=== PATIENT | male | born 1935 | race Hispanic/Latino ===

== ENCOUNTER 2016-09-04 22:54 | Observation (INO) | payer MEDICARE ==
[2016-09-04 23:09] VITALS: RESP 20
[2016-09-04 23:46] LABS: RBC URINE 27 /hpf (0-3); URINE BACTERIA MOD (<OCC); URINE BILIRUBIN NEGATIVE (NEGATIVE); URINE BLOOD 2+ (NEGATIVE); URINE GLUCOSE (UA) 1+ mg/dL (Normal); URINE KETONE TRACE mg/dL (NEGATIVE); URINE LEUKOCYTE ESTERASE 2+ Leu/uL (Negative); URINE PROTEIN 2+ mg/dL (NEGATIVE); URINE UROBILINOGEN NORMAL mg/dL (0.2-1.0); WBC URINE 318 /hpf (0-5)
[2016-09-04 23:47] LABS: URINE COLOR YELLOW (YELLOW)
[2016-09-05] MEDS ORDERED: Sodium Chloride 0.9% 1,000 ML IV ONE (00:02)
[2016-09-05] MEDS ORDERED: Sodium Chloride 0.9% 1,000 ML ONE (00:21)
[2016-09-05 00:32] LABS: BASO # 0.1 K/uL (0.0-0.2); EOS # 0.1 K/uL (0.0-0.7); EOS % 0.7 % (0.0-4.0); HEMATOCRIT 32.9 % (35.0-51.0); LYMPH # 2.3 K/uL (1.0-4.3); LYMPH % 15.2 % (20.0-40.0); MEAN CORPUSCULAR HEMOGLOBIN 26.5 pg (27.0-31.0); MEAN CORPUSCULAR HGB CONC 32.3 g/dL (33.0-37.0); MEAN PLATELET VOLUME 9.4 fL (7.2-11.7); MONO # 1.7 K/uL (0.0-0.8); NRBC % 0.1 % (0.0-2.0); RED CELL DISTRIBUTION WIDTH 16.5 % (11.5-14.5); WHITE BLOOD COUNT 15.4 K/uL (4.8-10.8)
[2016-09-05 00:48] LABS: CHLORIDE 97 mmol/L (98-107); POTASSIUM 3.8 mmol/L (3.6-5.2); SODIUM 139 mmol/L (132-148)
[2016-09-05 00:50] LABS: GFR AFRICAN-AMERICAN > 60
[2016-09-05 00:51] LABS: ALB/GLOB RATIO 1.2 (1.0-2.1); ALKALINE PHOSPHATASE 92 U/L (38-126); ALT/SGPT 14 U/L (21-72); AST/SGOT 29 U/L (17-59); BILIRUBIN,TOTAL 0.6 mg/dL (0.2-1.3); BLOOD UREA NITROGEN 21 mg/dL (9-20); CARBON DIOXIDE 26 mmol/L (22-30); GLUCOSE,RANDOM 222 mg/dL (75-110); TOTAL PROTEIN 7.5 g/dL (6.3-8.3)
[2016-09-05 00:52] LABS: CALCIUM 9.6 mg/dl (8.6-10.4)
--- NOTE | 2016-09-05 01:07 | C.PDOC ---
Time Seen by Provider: 09/04/16 23:31 Chief Complaint (Nursing): Male Genitourinary History Per: Patient Onset/Duration Of Symptoms: Days (few) Current Symptoms Are (Timing): Still Present Severity: Moderate Quality Of Discomfort: Burning Associated Symptoms: Fever, Urinary Symptoms Alleviating Factors: None Additional History Per: Prior Records Past Medical History Reviewed: Historical Data, Nursing Documentation, Vital Signs Vital Signs: Last Vital Signs Temp 97.8 F 09/04/16 23:04 Pulse 90 09/04/16 23:04 Resp 20 09/04/16 23:04 BP 136/79 09/04/16 23:04 Pulse Ox 97 09/05/16 01:07 - Medical History PMH: Benign Prostatic Hyperplasia, Diabetes, HTN Surgical History: Coronary Stent (10 years ago) - [employer] Procedures CORONAR ARTERIOGR-2 CATH (04/02/07) LEFT HEART CARDIAC CATH (04/02/07) LT HEART ANGIOCARDIOGRAM (04/02/07) Family History: States: Unknown Family Hx - Social History Hx Alcohol Use: No Hx Substance Use: No Review Of Systems Except As Marked, All Systems Reviewed And Found Negative. Constitutional: Positive for: Fever. Negative for: Weakness Cardiovascular: Negative for: Chest Pain Respiratory: Negative for: Shortness of Breath Gastrointestinal: Negative for: Vomiting, Abdominal Pain, Diarrhea Genitourinary: Positive for: Dysuria, Frequency. Negative for: Scrotal Pain Musculoskeletal: Negative for: Neck Pain, Back Pain Skin: Negative for: Rash Neurological: Negative for: Weakness, Numbness, Seizures, Altered Mental Status Physical Exam - Physical Exam Appears: Non-toxic, No Acute Distress Skin: Normal Color, Warm, Dry, No Rash Head: Atraumatic, Normacephalic Eye(s): bilateral: PERRL, EOMI Neck: Normal ROM, Supple Cardiovascular: Rhythm Regular Respiratory: Normal Breath Sounds, No Accessory Muscle Use Gastrointestinal/Abdominal: Soft, No Tenderness Back: No CVA Tenderness Extremity: Normal ROM Neurological/Psych: Oriented x3, Normal Motor, Normal Sensation ED Course And Treatment - Laboratory Results Result Diagrams: 09/05/16 00:23 09/05/16 00:23 Lab Interpretation: Abnormal Interpretation Of Abnormal: UTI. Leukocytosis. O2 Sat by Pulse Oximetry: 97 Pulse Ox Interpretation: Normal Disposition Discussed With : Hany P Keswani Comment: He accepted pt on hospitalist service. Doctor Will See Patient In The: Hospital Counseled Patient/Family Regarding: Studies Performed, Diagnosis - Disposition Disposition: HOSPITALIZED Disposition Time: 01:13 Condition: FAIR - Clinical Impression Clinical Impression: Complicated urinary tract infection
[2016-09-05] MEDS ORDERED: cefTRIAXone IV 1 gm in Dextros 50 ML IVPB ONE ×2 (01:16→02:06)
--- NOTE | 2016-09-05 02:10 | CP.PCM.HP ---
Addendum entered and electronically signed by Vicente Jeff DO 09/05/16 08:23: Correction: new home medication (for 3 weeks) is Trulicity 0.75mg q7D. Patient has taken a total of 2 doses. Original Note: <Vicente Jeff - Last Filed: 09/05/16 04:57> History of Present Illness - History of Present Illness History of Present Illness: CC: urinary frequency/burning x 1 week HPI: 81 M with PMHx BPH, Diabetes II, HTN, CAD - presents c/o sudden onset urinary frequency and burning with urination for the past week. More specifically, over the last 4 days, he admits to urinating every 10 minutes, when he typically urinates every few hours. Patient also c/o intermittent fever for the past 3 days, responsive to Tylenol (Tmax 102F). Patient does not recall any major changes to his diet or routine, with the exception of starting a new diabetes medication 3 weeks ago - weekly Trulicity in place of his daily Victoza. Patient reports completing 2 Sunday doses of Trulicity, a skipped his 3rd dose on 09/04 after feeling that he was experiencing side-effects (based on reading the SE label). He could not reach his PMD, but reached the pharmacy instead, who advised him to come to the ED. Admits to fever, lethargy, dysuria, decreased urinary volume, and urinary frequency. Denies scrotal pain. Also denies chills, headache, weakness, chest pain, palpitations, SOB, abdominal pain , back pain, rash, or any additional acute complaints. PMHx: BPH, Diabetes II, HTN, CAD PSHx: Coronary Stent (10 years ago) Meds: Verified via [facility] [phone]. Tamsulosin/Deuteride 0.4mg/ 0.5mg PO qD; Truvia 0.75mg q7D; Levemir 40u HS; glyburide 2.5mg BID; metformin 1000mg BID; Amlodipine 10mg / HCTZ 25mg / Valsartan 320mg PO qD. Allergies: NKDA FamHx: unknown SocHx: Denies tobacco, ETOH, or illicit drug use. Lives in an apartment, alone. 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 PMD: Dr. Adrian Burnett Present on Admission - Present on Admission Any Indicators Present on Admission: No Review of Systems - Constitutional Constitutional: Fever. absent: Chills, Headache - EENT Eyes: absent: Blurred Vision, Change in Vision Ears: absent: Decreased Hearing, Ear Discharge, Ear Pain Nose/Mouth/Throat: absent: Nasal Congestion, Nasal Discharge - Cardiovascular Cardiovascular: absent: Chest Pain, Chest Pain at Rest, Dyspnea - Respiratory Respiratory: absent: Cough, Dyspnea - Gastrointestinal Gastrointestinal: absent: Belching, Bloating, Diarrhea, Dysphagia - Genitourinary Genitourinary: As Per HPI, Voiding Freq/Small Amts. absent: Hematuria, Pyuria, Nocturia, Freq UTI - Reproductive: Male Reproductive:Male: As Per HPI - Musculoskeletal Musculoskeletal: absent: Muscle Weakness, Numbness, Tingling - Neurological Neurological: absent: Abnormal Hearing, Abnormal Movements - Psychiatric Psychiatric: absent: Anxiety, Depression - Hematologic/Lymphatic Hematologic: absent: Easy Bleeding, Easy Bruising Past Patient History - Past Social History Smoking Status: Never Smoked - CARDIAC Hx Hypertension: Yes - ENDOCRINE/METABOLIC Hx Diabetes Mellitus Type 1: Yes - GENITOURINARY/GYNECOLOGICAL Hx Prostate Problems: Yes - PSYCHIATRIC Hx Substance Use: No - SURGICAL HISTORY Hx Coronary Stent: Yes (10 years ago) Meds Allergies/Adverse Reactions: Allergies Allergy/AdvReac Type Severity Reaction Status Date / Time No Known Allergies Allergy Verified 09/10/16 20:12 Physical Exam - Constitutional Appears: Non-toxic, No Acute Distress - Head Exam Head Exam: ATRAUMATIC, NORMAL INSPECTION - Eye Exam Eye Exam: EOMI, Normal appearance, PERRL - ENT Exam ENT Exam: Mucous Membranes Moist - Neck Exam Neck exam: Positive for: Normal Inspection - Respiratory Exam Respiratory Exam: Clear to Auscultation Bilateral, NORMAL BREATHING PATTERN. absent: Wheezes - Cardiovascular Exam Cardiovascular Exam: REGULAR RHYTHM, +S1, +S2. absent: Rubs - GI/Abdominal Exam GI & Abdominal Exam: Normal Bowel Sounds, Soft. absent: Tenderness Additional comments: - No suprapubic tenderness - Exam Exam: absent: Scrotal Swelling, Testicular Tenderness - Extremities Exam Extremities exam: Positive for: normal inspection. Negative for: pedal edema, tenderness - Back Exam Back exam: NORMAL INSPECTION. absent: CVA tenderness (L), CVA tenderness (R) - Neurological Exam Neurological exam: Alert, CN II-XII Intact, Normal Gait, Oriented x3, Reflexes Normal - Psychiatric Exam Psychiatric exam: Normal Affect, Normal Mood - Skin Skin Exam: Dry, Intact, Normal Color, Warm Results - Vital Signs Recent Vital Signs: Last Vital Signs Temp 97.8 F 09/04/16 23:04 Pulse 90 09/04/16 23:04 Resp 20 09/04/16 23:04 BP 136/79 09/04/16 23:04 Pulse Ox 97 09/05/16 01:16 - Labs Result Diagrams: 09/05/16 00:23 09/05/16 00:23 Labs: Laboratory Results - last 24 hr 09/04/16 09/05/16 09/05/16 23:39 00:23 00:23 WBC 15.4 H RBC 4.01 L Hgb 10.6 L Hct 32.9 L MCV 82.0 MCH 26.5 L MCHC 32.3 L RDW 16.5 H Plt Count 330 MPV 9.4 Neut % (Auto) 72.1 Lymph % (Auto) 15.2 L [place] % (Auto) 11.0 H Eos % (Auto) 0.7 Baso % (Auto) 1.0 Neut # 11.1 H Lymph # 2.3 [place] # 1.7 H Eos # 0.1 Baso # 0.1 Sodium 139 Potassium 3.8 Chloride 97 L Carbon Dioxide 26 Anion Gap 20 BUN 21 H Creatinine 1.1 Est GFR ( Amer) > 60 Est GFR (Non-Af Amer) > 60 POC Glucose (mg/dL) Random Glucose 222 H Calcium 9.6 Total Bilirubin 0.6 AST 29 ALT 14 L Alkaline Phosphatase 92 Total Protein 7.5 Albumin 4.1 Globulin 3.4 Albumin/Globulin Ratio 1.2 Urine Color Yellow Urine Clarity Hazy Urine pH 5.0 Ur Specific [place] 1.027 Urine Protein 2+ H Urine Glucose (UA) 1+ H Urine Ketones Trace Urine Blood 2+ H Urine Nitrate Negative Urine Bilirubin Negative Urine Urobilinogen Normal Ur Leukocyte Esterase 2+ H Urine WBC (Auto) 318 H Urine RBC (Auto) 27 H Ur Squamous Epith Cells 2 Urine Bacteria Mod H 09/05/16 00:23 WBC RBC Hgb Hct MCV MCH MCHC RDW Plt Count MPV Neut % (Auto) Lymph % (Auto) [place] % (Auto) Eos % (Auto) Baso % (Auto) Neut # Lymph # [place] # Eos # Baso # Sodium Potassium Chloride Carbon Dioxide Anion Gap BUN Creatinine Est GFR ( Amer) Est GFR (Non-Af Amer) POC Glucose (mg/dL) 231 H Random Glucose Calcium Total Bilirubin AST ALT Alkaline Phosphatase Total Protein Albumin Globulin Albumin/Globulin Ratio Urine Color Urine Clarity Urine pH Ur Specific [place] Urine Protein Urine Glucose (UA) Urine Ketones Urine Blood Urine Nitrate Urine Bilirubin Urine Urobilinogen Ur Leukocyte Esterase Urine WBC (Auto) Urine RBC (Auto) Ur Squamous Epith Cells Urine Bacteria Assessment & Plan - Assessment and Plan (Free Text) Assessment: Complicated urinary tract infection - UA 2+ protein, 1+ glucose, 2+blood, 2+leuk est, 318 WBC, 27 RBC bacteria level moderate. - f/u UC - f/u BC - received Rocephin 1Gm IV in ED - Continue Rocephin 1Gm IVPB qd - f/u Abd/Pelv CT w/o contrast to investigate RBC in urine. - urinary frequency -> Post void residual volume 25cc via bladder scan. Leukocytosis - WBC 15.4 - afrebrile in ED. - pt reports fever of 102F for 3 days prior to admission. - see management above for UTI. Anemia, acute -Asymptomatic -Hgb 10.6; Hct 32.9, MCV 82 - f/u Fe, TIBC, %sat, ferritin, B12, folate Diabetes Type2 - Start Novolog ISS - medium dose - Verify home meds with PMD - HOLD Truvia 0.75mg q7D (recently started, replaced Victoza 1.8mg qD) - HOLD Levemir 40u HS - HOLD glyburide 2.5mg BID - HOLD metformin 1000mg BID - f/u A1c Hypertension - 136/79 on admission - HOLD home Amlodipine 10mg / HCTZ 25mg / Valsartan 320mg qD (verify with PMD). Hx BPH - Tamsulosin 0.4mg - Deuteride 0.5mg PO qD (not on formulary -> Finasteride 5mg PO qD) Hx CAD - Patient is not currently medicated - f/u FLP Prophylaxis -SCDs -Pepcid 20mg PO qD - Date & Time Date: 09/05/16 Time: 02:07 <Hany Aggarwal - Last Filed: 09/11/16 21:51> Results - Vital Signs Recent Vital Signs: Last Vital Signs Temp 98 F 09/05/16 15:29 Pulse 85 09/05/16 15:29 Resp 20 09/05/16 15:29 BP 155/72 H 09/05/16 15:29 Pulse Ox 95 09/05/16 15:29 - Labs Result Diagrams: 09/05/16 08:04 09/05/16 08:04 Attending/Attestation - Attestation I have personally seen and examined this patient.: Yes I have fully participated in the care of the patient.: Yes I have reviewed all pertinent clinical information: Yes
[2016-09-05] MEDS: (Novolog) Insulin Aspart, Recombinant 100 u/ml 10 ml vial SC SCH ×3 (07:47→18:56)
[2016-09-05 08:18] LABS: BASO # 0.1 K/uL (0.0-0.2); BASO % 0.9 % (0.0-2.0); EOS # 0.2 K/uL (0.0-0.7); EOS % 1.2 % (0.0-4.0); HEMATOCRIT 33.3 % (35.0-51.0); LYMPH # 2.7 K/uL (1.0-4.3); MEAN CELL VOLUME 82.5 fL (80.0-94.0); MEAN CORPUSCULAR HEMOGLOBIN 27.4 pg (27.0-31.0); MEAN CORPUSCULAR HGB CONC 33.2 g/dL (33.0-37.0); MONO # 1.5 K/uL (0.0-0.8); MONO % 10.3 % (0.0-10.0); NRBC % 0.1 % (0.0-2.0); RED CELL DISTRIBUTION WIDTH 16.1 % (11.5-14.5); WHITE BLOOD COUNT 14.4 K/uL (4.8-10.8)
[2016-09-05 08:37] LABS: IRON 36 ug/dL (49-181)
[2016-09-05 08:48] LABS: CHLORIDE 99 mmol/L (98-107); SODIUM 140 mmol/L (132-148)
[2016-09-05 08:50] LABS: CHOLESTEROL 118 mg/dL (0-199); GFR AFRICAN-AMERICAN > 60
[2016-09-05 08:51] LABS: ALB/GLOB RATIO 1.2 (1.0-2.1); ALKALINE PHOSPHATASE 95 U/L (38-126); ALT/SGPT 28 U/L (21-72); AST/SGOT 33 U/L (17-59); BILIRUBIN,TOTAL 0.8 mg/dL (0.2-1.3); BLOOD UREA NITROGEN 18 mg/dL (9-20); CALCIUM 9.7 mg/dl (8.6-10.4); CARBON DIOXIDE 27 mmol/L (22-30); GLUCOSE,RANDOM 127 mg/dL (75-110); PHOSPHOROUS 3.2 mg/dL (2.5-4.5)
[2016-09-05 08:52] LABS: MAGNESIUM 2.2 mg/dL (1.6-2.3)
[2016-09-05 09:59] LABS: FOLATE > 20.0 ng/mL
--- NOTE | 2016-09-05 10:42 | CT ---
PROCEDURE: CT Abdomen and Pelvis without Oral or IV contrast. HISTORY: urinary frequency, 27 RBC in urine COMPARISON: None available. TECHNIQUE: Contiguous axial images of the abdomen and pelvis. No oral or IV contrast administered. Coronal and Sagittal reformats generated and reviewed. Radiation dose: Total exam DLP = 1081.26 mGy-cm. This CT exam was performed using one or more of the following dose reduction techniques: Automated exposure control, adjustment of the mA and/or kV according to patient size, and/or use of iterative reconstruction technique. FINDINGS: There is limited evaluation of the solid organs without the administration of IV contrast. LOWER THORAX: No visible consolidation, pleural effusion, or pneumothorax. Partially imaged borderline cardiomegaly. LIVER: Punctate hepatic calcification, likely granuloma. GALLBLADDER AND BILE DUCTS: Unremarkable unenhanced appearance. PANCREAS: Unremarkable unenhanced appearance. SPLEEN: Unremarkable unenhanced appearance. ADRENALS: Unremarkable unenhanced appearance. KIDNEYS AND URETERS: No hydronephrosis or obstructing renal calculus. Punctate nonobstructing right renal calculus. 6 mm hypodense exophytic right renal lesion, too small to characterize. BLADDER: Under distention of the urinary bladder precludes adequate evaluation. Bladder wall appears thickened, likely exaggerated by under distension. REPRODUCTIVE: Heterogeneous enlarged prostate gland measures approximately 5.2 x 5.9 cm. APPENDIX: The appendix appears within normal limits of caliber. No secondary signs of acute appendicitis. BOWEL: The stomach is nondistended. Lack of oral contrast limits evaluation for bowel pathology. The bowel loops appear within normal limits of caliber without evidence of intestinal obstruction. Moderate constipation. PERITONEUM: No significant free fluid. No definite free air. LYMPH NODES: No bulky lymphadenopathy identified. VASCULATURE: Atherosclerotic calcifications. No aortic aneurysm. BONES: Peripherally sclerotic 1.5 cm lucent lesion in the right pelvis (coronal image 93). 6 mm sclerotic focus within the right sacrum, possibly bone island. Osseous demineralization. Multilevel degenerative changes. Mild curvature of the lumbar spine convex to the right. OTHER FINDINGS: Left greater than right fat containing inguinal hernias. IMPRESSION: Enlarged heterogeneous prostate gland. Recommend correlation with PSA. Moderate constipation. Too small to characterize 6 mm right renal lesion. 1.5 cm right pelvic lesion described above, possibly enchondroma. Additional findings as above.
[2016-09-05 10:50] LABS: PROSTATE SPECIFIC ANTIGEN 3.25 ng/mL (0.00-4.0)
[2016-09-05 15:34] VITALS: BP 155/72; PULSE 85; TEMP 98; O2SAT 95
--- NOTE | 2016-09-05 18:04 | CP.PCM.PN ---
<Bandar Aguilar - Last Filed: 09/05/16 23:13> Subjective - Date & Time of Evaluation Date of Evaluation: 09/05/16 Time of Evaluation: 07:30 - Subjective Subjective: PGY1 note for Dr. Hood's service 81 M with PMHx BPH, Diabetes II, HTN, CAD - presents c/o sudden onset urinary frequency and burning with urination for the past week. More specifically, over the last 4 days, he admits to urinating every 10 minutes, when he typically urinates every few hours. Pt. was started on IV ceftriaxone. On exam later in the day, the pt. denied fever and stated his frequency had decreased, but still complained of burning and occasional urinary retention. Pt. had no other complaints and denied headache, chest pain, difficulty breathing, nausea, vomiting, or diarrhea. Urologist Dr. Hays Objective - Vital Signs/Intake and Output Vital Signs (last 24 hours): Temp Pulse Resp BP Pulse Ox 98 F 85 20 155/72 H 95 09/05/16 15:29 09/05/16 15:29 09/05/16 15:29 09/05/16 15:29 09/05/16 15:29 Intake and Output: 09/05/16 09/05/16 06:59 18:59 Output Total 400 Balance -400 - Medications Medications: Current Medications Famotidine (Pepcid) 20 mg IVP Q12 [facility] Last Admin: 09/05/16 10:10 Dose: 20 mg Finasteride (Proscar) 5 mg PO DAILY [facility] Last Admin: 09/05/16 10:11 Dose: 5 mg Heparin Sodium (Porcine) (Heparin) 5,000 units SC Q12 [facility] Last Admin: 09/05/16 10:10 Dose: 5,000 units Ceftriaxone Sodium 1 gm/ (Sodium Chloride) 100 mls @ 100 mls/hr IVPB Q24H [facility] Insulin Aspart (Novolog) 0 unit SC ACHS [facility] PRN Reason: Protocol Last Admin: 09/05/16 07:47 Dose: Not Given Tamsulosin HCl (Flomax) 0.4 mg PO DAILY [facility] Last Admin: 09/05/16 10:10 Dose: 0.4 mg - Labs Labs: 09/05/16 08:04 09/05/16 08:04 - Constitutional Appears: Non-toxic, No Acute Distress - Head Exam Head Exam: ATRAUMATIC, NORMAL INSPECTION - Eye Exam Eye Exam: EOMI - ENT Exam ENT Exam: Mucous Membranes Moist - Neck Exam Neck Exam: Full ROM. absent: Lymphadenopathy, Thyromegaly - Respiratory Exam Respiratory Exam: Clear to Ausculation Bilateral, NORMAL BREATHING PATTERN - Cardiovascular Exam Cardiovascular Exam: REGULAR RHYTHM, RRR, +S1. absent: JVD - GI/Abdominal Exam GI & Abdominal Exam: Soft, Normal Bowel Sounds. absent: Tenderness - Extremities Exam Extremities Exam: Full ROM. absent: Joint Swelling, Pedal Edema - Back Exam Back Exam: NORMAL INSPECTION - Neurological Exam Neurological Exam: Alert, Awake, CN II-XII Intact, Normal Gait, Oriented x3 - Psychiatric Exam Psychiatric exam: Normal Affect, Normal Mood - Skin Skin Exam: Dry, Intact, Normal Color, Warm Assessment and Plan - Assessment and Plan (Free Text) Plan: Complicated urinary tract infection - UA 2+ protein, 1+ glucose, 2+blood, 2+leuk est, 318 WBC, 27 RBC bacteria level moderate. - UC received - BC received - received Rocephin 1Gm IV in ED - Continue Rocephin 1Gm IVPB qd - f/u Abd/Pelv CT w/o contrast to investigate RBC in urine. -please see full report - enlarged heterogeneous prostate gland, moderate constipation - 1.5cm right pelvic lesion, possibly enchondroma - 6mm right renal lesion - urinary frequency -> Post void residual volume 25cc via bladder scan. - Consult Urology - Dr. Fernandes appreciate recs A BPH suggest continue proscar pt should have further workup as outpatient he may return to Dr hays or follow up in my officce. Leukocytosis - WBC 15.4 - afrebrile in ED. - pt reports fever of 102F for 3 days prior to admission. - see management above for UTI. Anemia, acute -Asymptomatic -Hgb 10.6; Hct 32.9, MCV 82 - f/u Fe, TIBC, %sat, ferritin, B12, folate Diabetes Type2 - Start Novolog ISS - medium dose - Verify home meds with PMD - HOLD Truvia 0.75mg q7D (recently started, replaced Victoza 1.8mg qD) - HOLD Levemir 40u HS - HOLD glyburide 2.5mg BID - HOLD metformin 1000mg BID - f/u A1c Hypertension - 136/79 on admission - HOLD home Amlodipine 10mg / HCTZ 25mg / Valsartan 320mg qD (verify with PMD). Hx BPH - Tamsulosin 0.4mg - Deuteride 0.5mg PO qD (not on formulary -> Finasteride 5mg PO qD) Hx CAD - Patient is not currently medicated - f/u FLP Prophylaxis -SCDs -Pepcid 20mg PO qD <Vicente Hood - Last Filed: 09/06/16 07:45> Objective - Vital Signs/Intake and Output Vital Signs (last 24 hours): Temp Pulse Resp BP Pulse Ox 98 F 85 20 155/72 H 95 09/05/16 15:29 09/05/16 15:29 09/05/16 15:29 09/05/16 15:29 09/05/16 15:29 - Labs Labs: 09/05/16 08:04 09/05/16 08:04 Attending/Attestation - Attestation I have personally seen and examined this patient.: Yes I have fully participated in the care of the patient.: Yes I have reviewed all pertinent clinical information, including history, physical exam and plan: Yes Notes (Text): 09/06/16 07:43 Medical attending: Patient was seen and examined by me. Agree with the above note by resident. The patient later left AMA. We did see and examined the patient and spoke with him in detail and consulted urology however I was later informed the patient felt well and he decided to leave AMA Vicente Hood
--- NOTE | 2016-09-05 19:19 | CP.PCM.PN ---
Subjective - Date & Time of Evaluation Date of Evaluation: 09/05/16 Time of Evaluation: 19:15 - Subjective Subjective: 81 year old w male who was admitted with increased urinary frequency. Pt has hx of having [address] Hays. he is voiding well with no urinary retention. A BPH suggest continue proscar pt should have further workup as outpatient he may return to Dr hays or follow up in my officce. [place] Objective - Vital Signs/Intake and Output Vital Signs (last 24 hours): Temp Pulse Resp BP Pulse Ox 98 F 85 20 155/72 H 95 09/05/16 15:29 09/05/16 15:29 09/05/16 15:29 09/05/16 15:29 09/05/16 15:29 - Medications Medications: Current Medications Famotidine (Pepcid) 20 mg IVP Q12 [facility] Last Admin: 09/05/16 10:10 Dose: 20 mg Finasteride (Proscar) 5 mg PO DAILY [facility] Last Admin: 09/05/16 10:11 Dose: 5 mg Heparin Sodium (Porcine) (Heparin) 5,000 units SC Q12 [facility] Last Admin: 09/05/16 10:10 Dose: 5,000 units Ceftriaxone Sodium 1 gm/ (Sodium Chloride) 100 mls @ 100 mls/hr IVPB Q24H [facility] Insulin Aspart (Novolog) 0 unit SC ACHS [facility] PRN Reason: Protocol Last Admin: 09/05/16 18:56 Dose: 3 unit Tamsulosin HCl (Flomax) 0.4 mg PO DAILY [facility] Last Admin: 09/05/16 10:10 Dose: 0.4 mg - Labs Labs: 09/05/16 08:04 09/05/16 08:04
--- NOTE | 2016-09-05 21:26 | CP.PCM.PN ---
<Vicente Jeff - Last Filed: 09/07/16 07:42> Subjective - Date & Time of Evaluation Date of Evaluation: 09/05/16 Time of Evaluation: 20:15 - Subjective Subjective: HOUSE DOC NOTE: Patient has decided to leave the hospital against medical advice. The patient is competent and understands the risks of leaving, including permanent disability and/or , and has had an opportunity to ask questions about his/ her condition. Patient accepts all risk and liability. Paper work filed. Attending notified by RN. The patient has been informed that he may return for care at any time, and patient will follow-up with PMD urgently. Patient reported that he had [place] meet [place] the airport this evening, and maintain his Urology appointment the next morning with Dr. Hays. He was urged to keep that appointment and sent home with PO Antibiotics - Augmentin 875mg PO BID x7days. Objective - Vital Signs/Intake and Output Vital Signs (last 24 hours): Temp Pulse Resp BP Pulse Ox 98 F 85 20 155/72 H 95 09/05/16 15:29 09/05/16 15:29 09/05/16 15:29 09/05/16 15:29 09/05/16 15:29 Intake and Output: 09/05/16 09/06/16 18:59 06:59 Intake Total 500 Output Total 300 Balance 200 - Labs Labs: 09/05/16 08:04 09/05/16 08:04 - Additional Findings Additional findings: - Constitutional Appears: Non-toxic, No Acute Distress - Head Exam Head Exam: ATRAUMATIC, NORMAL INSPECTION - Eye Exam Eye Exam: EOMI - ENT Exam ENT Exam: Mucous Membranes Moist - Neck Exam Neck Exam: Full ROM. absent: Lymphadenopathy, Thyromegaly - Respiratory Exam Respiratory Exam: Clear to Ausculation Bilateral, NORMAL BREATHING PATTERN - Cardiovascular Exam Cardiovascular Exam: REGULAR RHYTHM, RRR, +S1. absent: JVD - GI/Abdominal Exam GI & Abdominal Exam: Soft, Normal Bowel Sounds. absent: Tenderness - Absent supra-pubic tenderness - Extremities Exam Extremities Exam: Full ROM. absent: Joint Swelling, Pedal Edema - Back Exam Back Exam: NORMAL INSPECTION - Neurological Exam Neurological Exam: Alert, Awake, CN II-XII Intact, Normal Gait, Oriented x3 - Psychiatric Exam Psychiatric exam: Normal Affect, Normal Mood - Skin Skin Exam: Dry, Intact, Normal Color, Warm <JasenHany P - Last Filed: 09/12/16 05:49> Objective - Vital Signs/Intake and Output Vital Signs (last 24 hours): Temp Pulse Resp BP Pulse Ox 98 F 85 20 155/72 H 95 09/05/16 15:29 09/05/16 15:29 09/05/16 15:29 09/05/16 15:29 09/05/16 15:29 - Labs Labs: 09/05/16 08:04 09/05/16 08:04 Attending/Attestation - Attestation I have personally seen and examined this patient.: Yes I have fully participated in the care of the patient.: Yes I have reviewed all pertinent clinical information, including history, physical exam and plan: Yes
--- NOTE | 2016-09-06 11:47 | CON ---
DATE: 09/05/2016 CHIEF COMPLAINT: Increased frequency in urination. HISTORY OF PRESENT ILLNESS: This is an 81-year-old male who has a history of prostatism, was treated by Dr. Max Hays. He has had 2 TURPs. Most recently in the last couple of days, he has had incre asing urinary frequency and was admitted to the [facility] for evaluation and treatment. He is a diabetic and has been on diabetic medication. He denies significant dysuria. Right now, he does h ave some increasing urinary frequency. He denies any hematuria, any urinary incontinence, or any uri nary retention. REVIEW OF SYSTEMS: RESPIRATORY: The patient denies any respiratory complaints. He has no shortness of breath or wheezi ng. CARDIAC: He has no chest pain, palpitations, or cardiac symptoms. GASTROINTESTINAL: The patient has no nauseousness, no vomiting, no change in bowel habits. No const ipation or diarrhea. ORTHOPEDIC: The patient has no history of joint issues. He has no history of fractures. He has no history of difficulty with movement or spinal cord abnormalities. INTEGUMENT: The patient has no history of abscesses. He has no history of rashes and no history of dermatological disease. SOCIAL HISTORY: The patient lives in [facility]. He is retired and lives alone. The patient is neither a smoker nor a drinker. PHYSICAL EXAMINATION: VITAL SIGNS: Within normal limits. HEAD, EARS, EYES, NOSE, AND THROAT: Within normal limits. NECK: Supple. There are no bruits, nodes, or masses. CHEST: Clear bilaterally. There are no rales or rhonchi. HEART: Normal sinus rhythm. ABDOMEN: Soft, nontender. There are no masses or organomegaly. There is no bladder distention. LUNGS: Clear bilaterally. There is no wheeze. There are no inguinal hernias. GENITALIA: Normal. GENITOURINARY: Penis is normal. Testicles, epididymis, and cord are normal. RECTAL: Shows a +2-3 prostate with no induration, good preservation of the median sulcus, good recta l sphincter tone. EXTREMITIES: Normal. I have also reviewed the patient's laboratory data, his medication list, and I suggest the following. ASSESSMENT: Benign prostatic hypertrophy with change in urinary symptoms. Suggest the patient should be worked up, but this may be done as an outpatient. Once the urine cultu re results are known, further evaluation should be carried out, which may include cystoscopy, Uroflow , and upper tract studies as necessary. I have suggested the patient return to Dr. Hays, or if he wishes, he may return to our office. He says he already has an appointment on 05/[address] Hays, and I suggested he keep that. Brett Quintanilla MD cc: [phone] TT: 09/06/2016 11:46:05 Confirmation # [id number] Dictation # [id number]
--- NOTE | 2016-09-06 18:33 | CP.PCM.DIS ---
<Bandar Aguilar - Last Filed: 09/06/16 20:10> Provider - Provider Date of Admission: 09/05/16 01:16 Attending physician: Hany Aggarwal MD Time Spent in preparation of Discharge (in minutes): 35 Diagnosis - Discharge Diagnosis (1) Complicated urinary tract infection Status: Acute Hospital Course - Lab Results Lab Results: Most Recent Lab Values WBC 14.4 K/uL (4.8-10.8) H 09/05/16 08:04 RBC 4.04 Mil/uL (4.40-5.90) L 09/05/16 08:04 Hgb 11.1 g/dL (12.0-18.0) L 09/05/16 08:04 Hct 33.3 % (35.0-51.0) L 09/05/16 08:04 MCV 82.5 fL (80.0-94.0) 09/05/16 08:04 MCH 27.4 pg (27.0-31.0) 09/05/16 08:04 MCHC 33.2 g/dL (33.0-37.0) 09/05/16 08:04 RDW 16.1 % (11.5-14.5) H 09/05/16 08:04 Plt Count 344 K/uL (130-400) 09/05/16 08:04 MPV 9.0 fL (7.2-11.7) 09/05/16 08:04 Neut % (Auto) 68.6 % (50.0-75.0) 09/05/16 08:04 Lymph % (Auto) 19.0 % (20.0-40.0) L 09/05/16 08:04 [place] % (Auto) 10.3 % (0.0-10.0) H 09/05/16 08:04 Eos % (Auto) 1.2 % (0.0-4.0) 09/05/16 08:04 Baso % (Auto) 0.9 % (0.0-2.0) 09/05/16 08:04 Neut # 9.9 K/uL (1.8-7.0) H 09/05/16 08:04 Lymph # 2.7 K/uL (1.0-4.3) 09/05/16 08:04 [place] # 1.5 K/uL (0.0-0.8) H 09/05/16 08:04 Eos # 0.2 K/uL (0.0-0.7) 09/05/16 08:04 Baso # 0.1 K/uL (0.0-0.2) 09/05/16 08:04 Sodium 140 mmol/L (132-148) 09/05/16 08:04 Potassium 4.0 mmol/L (3.6-5.2) 09/05/16 08:04 Chloride 99 mmol/L (98-107) 09/05/16 08:04 Carbon Dioxide 27 mmol/L (22-30) 09/05/16 08:04 Anion Gap 18 (10-20) 09/05/16 08:04 BUN 18 mg/dL (9-20) 09/05/16 08:04 Creatinine 1.1 MG/DL (0.8-1.5) 09/05/16 08:04 Est GFR ( Amer) > 60 09/05/16 08:04 Est GFR (Non-Af Amer) > 60 09/05/16 08:04 POC Glucose (mg/dL) 225 mg/dL (65-110) H 09/05/16 16:35 Random Glucose 127 mg/dL (75-110) H 09/05/16 08:04 Hemoglobin A1c 7.1 % (4.2-6.5) H 09/05/16 10:00 Calcium 9.7 mg/dl (8.6-10.4) 09/05/16 08:04 Phosphorus 3.2 mg/dL (2.5-4.5) 09/05/16 08:04 Magnesium 2.2 mg/dL (1.6-2.3) 09/05/16 08:04 Iron 36 ug/dL (49-181) L 09/05/16 08:04 TIBC 314 ug/dL (250-450) 09/05/16 08:04 % Saturation 11 (20-55) L 09/05/16 08:04 Ferritin 159.0 ng/mL 09/05/16 08:04 Total Bilirubin 0.8 mg/dL (0.2-1.3) 09/05/16 08:04 AST 33 U/L (17-59) 09/05/16 08:04 ALT 28 U/L (21-72) 09/05/16 08:04 Alkaline Phosphatase 95 U/L (38-126) 09/05/16 08:04 Total Protein 8.0 g/dL (6.3-8.3) 09/05/16 08:04 Albumin 4.3 g/dL (3.5-5.0) 09/05/16 08:04 Globulin 3.7 gm/dL (2.2-3.9) 09/05/16 08:04 Albumin/Globulin Ratio 1.2 (1.0-2.1) 09/05/16 08:04 Triglycerides 83 mg/dL (0-149) 09/05/16 08:04 Cholesterol 118 mg/dL (0-199) 09/05/16 08:04 LDL Cholesterol Direct 54 mg/dL (0-129) 09/05/16 08:04 HDL Cholesterol 34 mg/dL (30-70) 09/05/16 08:04 Prostate Specific Ag 3.25 ng/mL (0.00-4.0) 09/05/16 08:04 Vitamin B12 232 pg/mL (239-931) L 09/05/16 08:04 Folate > 20.0 ng/mL 09/05/16 08:04 Urine Color Yellow (YELLOW) 09/04/16 23:39 Urine Clarity Hazy (Clear) 09/04/16 23:39 Urine pH 5.0 (5.0-8.0) 09/04/16 23:39 Ur Specific [place] 1.027 (1.003-1.030) 09/04/16 23:39 Urine Protein 2+ mg/dL (NEGATIVE) H 09/04/16 23:39 Urine Glucose (UA) 1+ mg/dL (Normal) H 09/04/16 23:39 Urine Ketones Trace mg/dL (NEGATIVE) 09/04/16 23:39 Urine Blood 2+ (NEGATIVE) H 09/04/16 23:39 Urine Nitrate Negative (NEGATIVE) 09/04/16 23:39 Urine Bilirubin Negative (NEGATIVE) 09/04/16 23:39 Urine Urobilinogen Normal mg/dL (0.2-1.0) 09/04/16 23:39 Ur Leukocyte Esterase 2+ Shellie/uL (Negative) H 09/04/16 23:39 Urine WBC (Auto) 318 /hpf (0-5) H 09/04/16 23:39 Urine RBC (Auto) 27 /hpf (0-3) H 09/04/16 23:39 Ur Squamous Epith Cells 2 /hpf (0-5) 09/04/16 23:39 Urine Bacteria Mod (<OCC) H 09/04/16 23:39 - Hospital Course Hospital Course: 81 M with PMHx BPH, Diabetes II, HTN, CAD - presented c/o sudden onset urinary frequency and burning with urination for the past week. More specifically, over the last 4 days, he admits to urinating every 10 minutes, when he typically urinates every few hours. Pt. was started on IV ceftriaxone, Insulin sliding scale, Flomax, and Finasteride. By midday his symptoms had cleared and he was evaluated by urology with a recommendation to follow up outpatient. Towards the evening the pt. signed out AMA. Cultures were not back at that time. - Date & Time of H&P Date of H&P: 09/05/16 Time of H&P: 21:25 Discharge Exam - Head Exam Head Exam: ATRAUMATIC, NORMAL INSPECTION Discharge Plan - Follow Up Plan Condition: FAIR Disposition: AGAINST MEDICAL ADVICE <HoodVicente finley H - Last Filed: 09/07/16 07:24> Provider - Provider Date of Admission: 09/05/16 01:16 Attending physician: Hany Aggarwal MD Hospital Course - Lab Results Lab Results: Most Recent Lab Values WBC 14.4 K/uL (4.8-10.8) H 09/05/16 08:04 RBC 4.04 Mil/uL (4.40-5.90) L 09/05/16 08:04 Hgb 11.1 g/dL (12.0-18.0) L 09/05/16 08:04 Hct 33.3 % (35.0-51.0) L 09/05/16 08:04 MCV 82.5 fL (80.0-94.0) 09/05/16 08:04 MCH 27.4 pg (27.0-31.0) 09/05/16 08:04 MCHC 33.2 g/dL (33.0-37.0) 09/05/16 08:04 RDW 16.1 % (11.5-14.5) H 09/05/16 08:04 Plt Count 344 K/uL (130-400) 09/05/16 08:04 MPV 9.0 fL (7.2-11.7) 09/05/16 08:04 Neut % (Auto) 68.6 % (50.0-75.0) 09/05/16 08:04 Lymph % (Auto) 19.0 % (20.0-40.0) L 09/05/16 08:04 [place] % (Auto) 10.3 % (0.0-10.0) H 09/05/16 08:04 Eos % (Auto) 1.2 % (0.0-4.0) 09/05/16 08:04 Baso % (Auto) 0.9 % (0.0-2.0) 09/05/16 08:04 Neut # 9.9 K/uL (1.8-7.0) H 09/05/16 08:04 Lymph # 2.7 K/uL (1.0-4.3) 09/05/16 08:04 [place] # 1.5 K/uL (0.0-0.8) H 09/05/16 08:04 Eos # 0.2 K/uL (0.0-0.7) 09/05/16 08:04 Baso # 0.1 K/uL (0.0-0.2) 09/05/16 08:04 Sodium 140 mmol/L (132-148) 09/05/16 08:04 Potassium 4.0 mmol/L (3.6-5.2) 09/05/16 08:04 Chloride 99 mmol/L (98-107) 09/05/16 08:04 Carbon Dioxide 27 mmol/L (22-30) 09/05/16 08:04 Anion Gap 18 (10-20) 09/05/16 08:04 BUN 18 mg/dL (9-20) 09/05/16 08:04 Creatinine 1.1 MG/DL (0.8-1.5) 09/05/16 08:04 Est GFR ( Amer) > 60 09/05/16 08:04 Est GFR (Non-Af Amer) > 60 09/05/16 08:04 POC Glucose (mg/dL) 225 mg/dL (65-110) H 09/05/16 16:35 Random Glucose 127 mg/dL (75-110) H 09/05/16 08:04 Hemoglobin A1c 7.1 % (4.2-6.5) H 09/05/16 10:00 Calcium 9.7 mg/dl (8.6-10.4) 09/05/16 08:04 Phosphorus 3.2 mg/dL (2.5-4.5) 09/05/16 08:04 Magnesium 2.2 mg/dL (1.6-2.3) 09/05/16 08:04 Iron 36 ug/dL (49-181) L 09/05/16 08:04 TIBC 314 ug/dL (250-450) 09/05/16 08:04 % Saturation 11 (20-55) L 09/05/16 08:04 Ferritin 159.0 ng/mL 09/05/16 08:04 Total Bilirubin 0.8 mg/dL (0.2-1.3) 09/05/16 08:04 AST 33 U/L (17-59) 09/05/16 08:04 ALT 28 U/L (21-72) 09/05/16 08:04 Alkaline Phosphatase 95 U/L (38-126) 09/05/16 08:04 Total Protein 8.0 g/dL (6.3-8.3) 09/05/16 08:04 Albumin 4.3 g/dL (3.5-5.0) 09/05/16 08:04 Globulin 3.7 gm/dL (2.2-3.9) 09/05/16 08:04 Albumin/Globulin Ratio 1.2 (1.0-2.1) 09/05/16 08:04 Triglycerides 83 mg/dL (0-149) 09/05/16 08:04 Cholesterol 118 mg/dL (0-199) 09/05/16 08:04 LDL Cholesterol Direct 54 mg/dL (0-129) 09/05/16 08:04 HDL Cholesterol 34 mg/dL (30-70) 09/05/16 08:04 Prostate Specific Ag 3.25 ng/mL (0.00-4.0) 09/05/16 08:04 Vitamin B12 232 pg/mL (239-931) L 09/05/16 08:04 Folate > 20.0 ng/mL 09/05/16 08:04 Urine Color Yellow (YELLOW) 09/04/16 23:39 Urine Clarity Hazy (Clear) 09/04/16 23:39 Urine pH 5.0 (5.0-8.0) 09/04/16 23:39 Ur Specific [place] 1.027 (1.003-1.030) 09/04/16 23:39 Urine Protein 2+ mg/dL (NEGATIVE) H 09/04/16 23:39 Urine Glucose (UA) 1+ mg/dL (Normal) H 09/04/16 23:39 Urine Ketones Trace mg/dL (NEGATIVE) 09/04/16 23:39 Urine Blood 2+ (NEGATIVE) H 09/04/16 23:39 Urine Nitrate Negative (NEGATIVE) 09/04/16 23:39 Urine Bilirubin Negative (NEGATIVE) 09/04/16 23:39 Urine Urobilinogen Normal mg/dL (0.2-1.0) 09/04/16 23:39 Ur Leukocyte Esterase 2+ Shellie/uL (Negative) H 09/04/16 23:39 Urine WBC (Auto) 318 /hpf (0-5) H 09/04/16 23:39 Urine RBC (Auto) 27 /hpf (0-3) H 09/04/16 23:39 Ur Squamous Epith Cells 2 /hpf (0-5) 09/04/16 23:39 Urine Bacteria Mod (<OCC) H 09/04/16 23:39 Attending/Attestation - Attestation I have personally seen and examined this patient.: Yes I have fully participated in the care of the patient.: Yes I have reviewed all pertinent clinical information, including history, physical exam and plan: Yes Notes (Text): Medical Attending: Patient was seen and examined by me. I was informed that he did not want to stay and left AMA. Patient did not want to stay for further work up with urology. Vicente Hood
== END 2016-09-05 20:40 | disposition left against medical advice (07) ==
LOC: C.ER 22:54 → C.5T 09-05 01:16 → INTOOBSV 09-05 01:16 → C.5T 09-05 01:16 → UNDOADMOB 09-05 01:16 → UNDODISOB 09-05 20:40
PROVIDERS: ADMIT Internal Medicine; ATTEND Internal Medicine
DX: N39.0 Urinary tract infection, site not specified (principal); E11.9 Type 2 diabetes mellitus without complications; I10 Essential (primary) hypertension; I25.10 Atherosclerotic heart disease of native coronary artery without angina pectoris; N40.1 Benign prostatic hyperplasia with lower urinary tract symptoms; R35.0 Frequency of micturition; Z95.5 Presence of coronary angioplasty implant and graft; Z79.4 Long term (current) use of insulin
CPT/HCPCS: 74176; 80053; 80061; 81001; 82607; 82728; 82746; 82948; 83036; 83540; 83550; 83735; 84100; 84153; 85025; 87040; 87086; 87181; 96361; 96372; 96374; 96375; 99285; G0378; J0696; J1644; J7040

== ENCOUNTER 2016-09-10 19:25 | Inpatient (IN) | payer MEDICARE ==
--- NOTE | 2016-09-10 20:31 | C.PDOC ---
History Of Present Illness 81 y/o male presents to ED with complaint of urinary retention, last voiding 4- 5 hours ago. Patient reports he has been having clots. Denies fever, chills, nausea, or vomiting. Time Seen by Provider: 09/10/16 20:31 Chief Complaint (Nursing): Male Genitourinary History Per: Patient History/Exam Limitations: no limitations Onset/Duration Of Symptoms: Hrs Current Symptoms Are (Timing): Still Present Severity: Moderate Pain Scale Rating Of: 6 Associated Symptoms: Urinary Symptoms (retention). denies: Fever, Chills, Nausea, Vomiting, Back Pain, Chest Pain Recent travel outside of the [place] States: No Past Medical History Reviewed: Historical Data, Nursing Documentation, Vital Signs Vital Signs: Last Vital Signs Temp 97.4 F L 09/10/16 21:20 Pulse 106 H 09/10/16 21:20 Resp 22 09/10/16 21:20 BP 167/72 H 09/10/16 21:20 Pulse Ox 98 09/10/16 22:49 - Medical History PMH: Benign Prostatic Hyperplasia, Diabetes, HTN Surgical History: Coronary Stent (10 years ago) - [facility] CORONAR ARTERIOGR-2 CATH (04/02/07) LEFT HEART CARDIAC CATH (04/02/07) LT HEART ANGIOCARDIOGRAM (04/02/07) Family History: States: Unknown Family Hx - Social History Hx Alcohol Use: No Hx Substance Use: No - Immunization History Hx Tetanus Toxoid Vaccination: No Hx Influenza Vaccination: Yes Hx Pneumococcal Vaccination: No Review Of Systems Except As Marked, All Systems Reviewed And Found Negative. Constitutional: Negative for: Fever, Chills Cardiovascular: Negative for: Chest Pain Respiratory: Negative for: Shortness of Breath Gastrointestinal: Negative for: Nausea, Vomiting Genitourinary: Positive for: Hematuria, Other (urinary retention) Skin: Negative for: Rash Physical Exam - Physical Exam Appears: Non-toxic, No Acute Distress Skin: Warm, Dry Head: Atraumatic, Normacephalic Chest: Symmetrical Cardiovascular: Rhythm Regular Respiratory: No Accessory Muscle Use, No Rales, No Rhonchi, No Wheezing Gastrointestinal/Abdominal: Soft, Tenderness (diffuse), Distention, No Guarding , No Rebound Extremity: Normal ROM, Capillary Refill (< 2 sec) Neurological/Psych: Oriented x3, Normal Speech, Normal Cognition ED Course And Treatment - Laboratory Results Result Diagrams: 09/10/16 21:34 09/10/16 21:34 O2 Sat by Pulse Oximetry: 98 (RA) Pulse Ox Interpretation: Normal Progress Note: Attempted 18 Yemeni w/o success, [address] [place] attempted - able to flush some clots but still no urine output. 20 [place]i coude used, 300 cc's of clots aspirated. Patient with some relief. Disposition Discussed With Dr.: Hany Aggarwal Comment: accepted the pt on his service and took over the care at 10:52 PM Doctor Will See Patient In The: ED Counseled Patient/Family Regarding: Studies Performed, Diagnosis - Disposition Disposition: HOSPITALIZED Disposition Time: 20:31 Condition: FAIR - Clinical Impression Clinical Impression: Complicated urinary tract infection, Urinary retention, Hematuria - Scribe Statement The provider has reviewed the documentation as recorded by the [place] Provider Scribe Attestation: All medical record entries made by the Scribe were at my direction and personally dictated by me. I have reviewed the chart and agree that the record accurately reflects my personal performance of the history, physical exam, medical decision making, and the department course for this patient. I have also personally directed, reviewed, and agree with the discharge instructions and disposition. Decision To Admit - Pt Status Changed To: Hospital Disposition Of: Inpatient - Admit Certification Admit to Inpatient:: After my assessment, the patient will require hospitalization for at least two midnights. This is because of the severity of symptoms shown, intensity of services needed, and/or the medical risk in this patient being treated as an outpatient. - InPatient: Physician Admission Certification: I certify that this patient requires 2 or more midnights of care for the following reason:: After my assessment, the patient will require hospitalization for at least two midnights. This is because of the severity of symptoms shown, intensity of services needed, and/or the medical risk in this patient being treated as an outpatient. - . Bed Request Type: Regular Admitting Physician: Hany Aggarwal Patient Diagnosis: Complicated urinary tract infection, Urinary retention, Hematuria
[2016-09-10] MEDS ORDERED: Lidocaine 2% Jelly (Uro-Jet) ONE ×2 (20:48→20:59)
[2016-09-10 21:56] LABS: RBC URINE 8201 /hpf (0-3); URINE BILIRUBIN NEGATIVE (NEGATIVE); URINE BLOOD 2+ (NEGATIVE); URINE COLOR Red (YELLOW); URINE GLUCOSE (UA) 1+ mg/dL (Normal); URINE KETONE NEGATIVE (NEGATIVE); URINE LEUKOCYTE ESTERASE NEG Leu/uL (Negative); URINE PROTEIN 2+ mg/dL (NEGATIVE); URINE UROBILINOGEN NORMAL mg/dL (0.2-1.0); WBC URINE 81 /hpf (0-5)
[2016-09-10 22:02] LABS: BASO # 0.1 K/uL (0.0-0.2); BASO % 0.9 % (0.0-2.0); EOS # 0.3 K/uL (0.0-0.7); EOS % 1.7 % (0.0-4.0); HEMATOCRIT 36.8 % (35.0-51.0); LYMPH # 2.7 K/uL (1.0-4.3); LYMPH % 16.5 % (20.0-40.0); MEAN CELL VOLUME 82.3 fL (80.0-94.0); MEAN CORPUSCULAR HEMOGLOBIN 26.8 pg (27.0-31.0); MEAN CORPUSCULAR HGB CONC 32.6 g/dL (33.0-37.0); MEAN PLATELET VOLUME 8.9 fL (7.2-11.7); MONO # 1.2 K/uL (0.0-0.8); MONO % 7.1 % (0.0-10.0); NRBC % 0.1 % (0.0-2.0); PLATELET COUNT 496 K/uL (130-400); RED CELL DISTRIBUTION WIDTH 16.6 % (11.5-14.5); WHITE BLOOD COUNT 16.3 K/uL (4.8-10.8)
[2016-09-10 22:05] LABS: CHLORIDE 99 mmol/L (98-107)
[2016-09-10 22:06] LABS: POTASSIUM 3.8 mmol/L (3.6-5.2); SODIUM 136 mmol/L (132-148)
[2016-09-10 22:08] LABS: ALB/GLOB RATIO 1.5 (1.0-2.1); AST/SGOT 34 U/L (17-59); BILIRUBIN,TOTAL 0.1 mg/dL (0.2-1.3); CARBON DIOXIDE 22 mmol/L (22-30); GFR AFRICAN-AMERICAN > 60; TOTAL PROTEIN 8.6 g/dL (6.3-8.3)
[2016-09-10 22:09] LABS: ALKALINE PHOSPHATASE 99 U/L (38-126); ALT/SGPT 35 U/L (21-72); BLOOD UREA NITROGEN 18 mg/dL (9-20); CALCIUM 10.4 mg/dl (8.6-10.4); GLUCOSE,RANDOM 150 mg/dL (75-110)
[2016-09-10] MEDS ORDERED: Piperacillin/Tazobact 3.375 gm 100 ML IVPB STA (22:22)
--- NOTE | 2016-09-10 22:58 | CP.PCM.HP ---
<Brandon Baron - Last Filed: 09/11/16 00:32> History of Present Illness - History of Present Illness History of Present Illness: CC: "urinary retention and blood in urine" 81 M with PMH BPH, Diabetes II, HTN, CAD presents to [facility] ED with complaint of urinary retention and hematuria for 3 days. Patient left AMA on 09/05 and was given Augmentin to take. He started to take it but stated the Augmentin and Trulicity made urinary retention worse, which facilitated the bleeding. Patient reports completing 2 days of Augmentin but stopped due to his symptoms. Patient stated his symptoms never resolved from previous admission. He rated the pain as 10/10 in severity. He described the pain as constant and throbbing, located in suprapubic region and his penis without radiation. Urinating and certain movements exacerbates the pain while nothing seems to alleviate it. Admits to fever, dysuria, decreased urinary volume, and urinary frequency. Denies chills, headache, weakness, chest pain, palpitations, SOB, abdominal pain, back pain, rash, or any additional acute complaints. PMD: Dr. Adrian Burnett PMH: BPH, Diabetes II, HTN, CAD Meds: Tamsulosin/Deuteride 0.4mg/0.5mg PO qD; Truvia 0.75mg q7D; Levemir 40u HS ; glyburide 2.5mg BID; metformin 1000mg BID; Amlodipine 10mg / HCTZ 25mg / Valsartan 320mg PO qD. Allergies: NKDA PSH: Coronary Stent (10 years ago) Hosp: 09/05 for urinary frequency and dysuria FH: unknown Social: Denies tobacco, ETOH, or illicit drug use. Lives in an apartment, alone. 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 Present on Admission - Present on Admission Any Indicators Present on Admission: No History of DVT/PE: No History of Uncontrolled Diabetes: No Urinary Catheter: No Decubitus Ulcer Present: No Review of Systems - Constitutional Constitutional: Fatigue, Fever. absent: Chills, Headache - EENT Eyes: absent: Blurred Vision, Change in Vision, Discharge Ears: absent: Ear Discharge, Dizziness Nose/Mouth/Throat: absent: Nasal Congestion, Nasal Discharge - Cardiovascular Cardiovascular: absent: Chest Pain, Chest Pain at Rest, Chest Pain with Activity , Diaphoresis, Dyspnea, Palpitations, Syncope - Respiratory Respiratory: absent: Cough, Dyspnea, Hemoptysis, Dyspnea on Exertion - Gastrointestinal Gastrointestinal: absent: Abdominal Pain, Constipation, Diarrhea, Nausea, Vomiting - Genitourinary Genitourinary: Change in Urinary Stream, Difficulty Urinating, Dysuria, Hematuria - Musculoskeletal Musculoskeletal: absent: Numbness, Stiffness, Tingling - Integumentary Integumentary: absent: Bleeding Lesions, Changing Lesions, Lesions, New Lesions , Rash - Neurological Neurological: absent: Dizziness, Numbness, Headaches, Syncope, Tingling, Vertigo , Weakness - Psychiatric Psychiatric: absent: Homicidal Ideation, Suicidal Ideation - Endocrine Endocrine: Fatigue. absent: Palpitations, Polydipsia, Polyphagia, Polyuria - Hematologic/Lymphatic Hematologic: absent: Easy Bleeding, Easy Bruising, Lymphadenopathy Past Patient History - Past Medical History & Family History Past Medical History?: Yes - Past Social History Smoking Status: Never Smoked - CARDIAC Hx Hypertension: Yes - PULMONARY Hx Respiratory Disorders: No - NEUROLOGICAL Hx Neurological Disorder: No - HEENT Hx HEENT Problems: No - RENAL Hx Chronic Kidney Disease: No - ENDOCRINE/METABOLIC Hx Diabetes Mellitus Type 2: Yes - HEMATOLOGICAL/ONCOLOGICAL Hx Blood Disorders: No - INTEGUMENTARY Hx Dermatological Problems: No - MUSCULOSKELETAL/RHEUMATOLOGICAL Hx Falls: No - GASTROINTESTINAL Hx Gastrointestinal Disorders: No - GENITOURINARY/GYNECOLOGICAL Hx Prostate Problems: Yes - PSYCHIATRIC Hx Substance Use: No - SURGICAL HISTORY Hx Coronary Stent: Yes (10 years ago) - ANESTHESIA Hx Anesthesia: Yes Hx Anesthesia Reactions: No Hx Malignant Hyperthermia: No Meds Allergies/Adverse Reactions: Allergies Allergy/AdvReac Type Severity Reaction Status Date / Time No Known Allergies Allergy Verified 09/10/16 20:12 Physical Exam - Constitutional Appears: No Acute Distress - Head Exam Head Exam: ATRAUMATIC, NORMOCEPHALIC - Eye Exam Eye Exam: EOMI, Normal appearance Pupil Exam: PERRL - ENT Exam ENT Exam: Mucous Membranes Moist - Neck Exam Neck exam: Positive for: Normal Inspection - Respiratory Exam Respiratory Exam: Clear to Auscultation Bilateral, NORMAL BREATHING PATTERN - Cardiovascular Exam Cardiovascular Exam: Tachycardia, REGULAR RHYTHM, +S1, +S2 - GI/Abdominal Exam GI & Abdominal Exam: Normal Bowel Sounds, Soft, Tenderness (suprapubic). absent : Distended, Firm, Guarding, Rebound - Exam Additional comments: phipps was removed due to clotting, bag had 500cc of bloond tinged urine with multiple clots - Extremities Exam Extremities exam: Positive for: normal capillary refill, pedal pulses present. Negative for: calf tenderness - Back Exam Back exam: absent: CVA tenderness (L), CVA tenderness (R) - Neurological Exam Neurological exam: Alert, CN II-XII Intact, Oriented x3 - Psychiatric Exam Psychiatric exam: Normal Affect, Normal Mood - Skin Skin Exam: Dry, Intact, Normal Color, Warm Results - Vital Signs Recent Vital Signs: Last Vital Signs Temp 97.4 F L 09/10/16 21:20 Pulse 106 H 09/10/16 21:20 Resp 22 09/10/16 21:20 BP 167/72 H 09/10/16 21:20 Pulse Ox 98 09/10/16 22:56 - Labs Result Diagrams: 09/10/16 21:34 09/10/16 21:34 Labs: Laboratory Results - last 24 hr 09/10/16 09/10/16 09/10/16 21:34 21:34 21:34 WBC 16.3 H RBC 4.47 Hgb 12.0 Hct 36.8 MCV 82.3 MCH 26.8 L MCHC 32.6 L RDW 16.6 H Plt Count 496 H D MPV 8.9 Neut % (Auto) 73.8 Lymph % (Auto) 16.5 L Edgar % (Auto) 7.1 Eos % (Auto) 1.7 Baso % (Auto) 0.9 Neut # 12.1 H Lymph # 2.7 Edgar # 1.2 H Eos # 0.3 Baso # 0.1 Differential Comment Y Sodium 136 Potassium 3.8 Chloride 99 Carbon Dioxide 22 Anion Gap 19 BUN 18 Creatinine 1.2 Est GFR ( Amer) > 60 Est GFR (Non-Af Amer) 58 Random Glucose 150 H Calcium 10.4 Total Bilirubin 0.1 L AST 34 ALT 35 Alkaline Phosphatase 99 Total Protein 8.6 H Albumin 5.1 H Globulin 3.4 Albumin/Globulin Ratio 1.5 Urine Color Red Urine Clarity Hazy Urine pH 6.0 Ur Specific [place] 1.010 Urine Protein 2+ H Urine Glucose (UA) 1+ H Urine Ketones Negative Urine Blood 2+ H Urine Nitrate Negative Urine Bilirubin Negative Urine Urobilinogen Normal Ur Leukocyte Esterase Neg Urine WBC (Auto) 81 H Urine RBC (Auto) 8201 H Assessment & Plan - Assessment and Plan (Free Text) Plan: Urinary retention UA 2+ protein, 1+ glucose, 2+blood, , 81 WBC, 8201 RBC\\ Urology consult, Dr. Quintanilla, help appreciated f/u Urine Cx f/u Blood cx Rocephin 1Gm IVPB daily Abd/Pelv CT: f/u report Post void volume Q6H I's & O's Hematuria UA 2+ protein, 1+ glucose, 2+blood, , 81 WBC, 8201 RBC Urology consult, Dr. Quintanilla, help appreciated f/u Urine Cx f/u Blood cx Rocephin 1Gm IVPB daily Abd/Pelv CT: f/u report Post void volume Q6H Leukocytosis WBC 16.3. reports subjective fevers Diabetes Type2 ISS Accuchecks HOLD Truvia 0.75mg SC q7D HOLD Levemir 40u SC HS HOLD glyburide 2.5mg PO BID HOLD metformin 1000mg PO BID Monitor Glucose Hypertension HOLD home Amlodipine 10mg / HCTZ 25mg / Valsartan 320mg daily for now Hx BPH Tamsulosin 0.4mg Deuteride 0.5mg PO daily is non-formulary so start Finasteride 5mg PO daily instead Hx CAD Patient is not currently medicated Prophylaxis SCDs Protonix 40 mg PO daily NPO except meds just incase Urology needs to do procedure tomorrow <Hany Aggarwal P - Last Filed: 09/12/16 05:53> Results - Vital Signs Recent Vital Signs: Last Vital Signs Temp 98.1 F 09/11/16 23:55 Pulse 89 09/11/16 23:55 Resp 20 09/11/16 23:55 BP 131/61 09/11/16 23:55 Pulse Ox 98 09/11/16 23:55 - Labs Result Diagrams: 09/11/16 07:25 09/11/16 07:25 Labs: Laboratory Results - last 24 hr 09/11/16 09/11/16 09/11/16 07:25 07:25 07:25 WBC 20.9 H RBC 4.26 L Hgb 11.4 L Hct 34.8 L MCV 81.7 MCH 26.7 L MCHC 32.6 L RDW 16.6 H Plt Count 487 H MPV 8.6 Neut % (Auto) 75.9 H Lymph % (Auto) 16.1 L Edgar % (Auto) 6.6 Eos % (Auto) 1.1 Baso % (Auto) 0.3 Neut # 15.9 H Lymph # 3.4 Edgar # 1.4 H Eos # 0.2 Baso # 0.1 PT 11.9 INR 1.1 APTT 29 Sodium 141 Potassium 4.3 Chloride 98 Carbon Dioxide 28 Anion Gap 19 BUN 17 Creatinine 1.1 Est GFR ( Amer) > 60 Est GFR (Non-Af Amer) > 60 POC Glucose (mg/dL) Random Glucose 147 H Calcium 10.1 Phosphorus 3.5 Magnesium 2.1 Total Bilirubin 0.7 AST 27 ALT 23 Alkaline Phosphatase 78 Total Protein 7.7 Albumin 4.2 Globulin 3.5 Albumin/Globulin Ratio 1.2 09/11/16 09/11/16 09/11/16 07:38 11:24 15:58 WBC RBC Hgb Hct MCV MCH MCHC RDW Plt Count MPV Neut % (Auto) Lymph % (Auto) Edgar % (Auto) Eos % (Auto) Baso % (Auto) Neut # Lymph # Edgar # Eos # Baso # PT INR APTT Sodium Potassium Chloride Carbon Dioxide Anion Gap BUN Creatinine Est GFR ( Amer) Est GFR (Non-Af Amer) POC Glucose (mg/dL) 152 H 185 H 264 H Random Glucose Calcium Phosphorus Magnesium Total Bilirubin AST ALT Alkaline Phosphatase Total Protein Albumin Globulin Albumin/Globulin Ratio 09/11/16 21:39 WBC RBC Hgb Hct MCV MCH MCHC RDW Plt Count MPV Neut % (Auto) Lymph % (Auto) Edgar % (Auto) Eos % (Auto) Baso % (Auto) Neut # Lymph # Edgar # Eos # Baso # PT INR APTT Sodium Potassium Chloride Carbon Dioxide Anion Gap BUN Creatinine Est GFR ( Amer) Est GFR (Non-Af Amer) POC Glucose (mg/dL) 210 H Random Glucose Calcium Phosphorus Magnesium Total Bilirubin AST ALT Alkaline Phosphatase Total Protein Albumin Globulin Albumin/Globulin Ratio Attending/Attestation - Attestation I have personally seen and examined this patient.: Yes I have fully participated in the care of the patient.: Yes I have reviewed all pertinent clinical information: Yes
[2016-09-10] MEDS ORDERED: Piperacillin/Tazobact 3.375 gm 100 ML IVPB ONE (23:01)
[2016-09-10] MEDS ORDERED: Iodixanol 320 MG/ML 100 ML BOTTLE IV ONE (23:06)
--- NOTE | 2016-09-10 23:36 | CT ---
EXAM: CT Abdomen and Pelvis With Intravenous Contrast CLINICAL HISTORY: 81 years old, male; Pain; Abdominal pain; Periumbilical; Additional info: Hematuria, urinary retention TECHNIQUE: Axial computed tomography images of the abdomen and pelvis with intravenous contrast. This CT exam was performed using one or more of the following dose reduction techniques: automated exposure control, adjustment of the mA and/or kV according to patient size, and/or use of iterative reconstruction technique. Coronal and sagittal reformatted images were created and reviewed. CONTRAST: 100 mL of visi administered intravenously. COMPARISON: No relevant prior studies available. FINDINGS: Lower thorax: The bilateral lung bases are clear. ABDOMEN: Liver: No acute findings. Gallbladder and bile ducts: The gallbladder is decompressed, without calcified stones. No significant intra- or extrahepatic biliary ductal dilation. Pancreas: Enhances homogeneously. No ductal dilation. No discrete mass. Spleen: No acute findings. Adrenals: No acute findings. Kidneys and ureters: No acute findings. No hydronephrosis or renal calculi. No discrete solid mass. PELVIS: Bladder: The bladder is decompressed with Madden catheter, limiting its evaluation. Reproductive: The prostate gland is enlarged, and demonstrates heterogeneous attenuation. Appendix: The air filled appendix is of normal caliber (series 3, image 110; series 601, image 53) . ABDOMEN and PELVIS: Stomach and bowel: No obstruction. No mucosal thickening. A fat containing left inguinal hernia is present. A small fat containing umbilical hernia is also noted. Peritoneum: No significant fluid collection. No free air. Lymph nodes: No pathologically enlarged lymph nodes. Vasculature: Calcified atherosclerotic disease. Bones: Diffuse bony demineralization, without acute fracture. Peripherally sclerotic 15 mm lucency within the right hemipelvis. Additional subcentimeter sclerotic focus within the right sacrum, likely a bone island. Multilevel degenerative disease, with a dextroscoliotic curvature of the lumbar spine. IMPRESSION: Fat-containing umbilical and left inguinal hernias. Enlarged heterogeneous prostate gland. Additional nonacute findings, as detailed above.
[2016-09-11] MEDS: Sodium Chloride 0.9% 1,000 ML IV SCH ×4 (00:30→20:30)
[2016-09-11] MEDS ORDERED: cefTRIAXone IV 1 gm in Dextros 50 ML IVPB ONE (01:55)
[2016-09-11] MEDS ORDERED: Pneumococcal 23-Valent Vaccine IM ONE (04:22)
[2016-09-11 07:42] LABS: INR 1.1
[2016-09-11 07:45] LABS: BASO # 0.1 K/uL (0.0-0.2); BASO % 0.3 % (0.0-2.0); EOS # 0.2 K/uL (0.0-0.7); EOS % 1.1 % (0.0-4.0); HEMATOCRIT 34.8 % (35.0-51.0); LYMPH # 3.4 K/uL (1.0-4.3); LYMPH % 16.1 % (20.0-40.0); MEAN CELL VOLUME 81.7 fL (80.0-94.0); MEAN CORPUSCULAR HEMOGLOBIN 26.7 pg (27.0-31.0); MEAN CORPUSCULAR HGB CONC 32.6 g/dL (33.0-37.0); MEAN PLATELET VOLUME 8.6 fL (7.2-11.7); MONO # 1.4 K/uL (0.0-0.8); MONO % 6.6 % (0.0-10.0); NRBC % 0.1 % (0.0-2.0); RED CELL DISTRIBUTION WIDTH 16.6 % (11.5-14.5); WHITE BLOOD COUNT 20.9 K/uL (4.8-10.8)
[2016-09-11 08:00] LABS: CHLORIDE 98 mmol/L (98-107)
[2016-09-11 08:01] LABS: POTASSIUM 4.3 mmol/L (3.6-5.2); SODIUM 141 mmol/L (132-148)
[2016-09-11 08:03] LABS: ALB/GLOB RATIO 1.2 (1.0-2.1); ALKALINE PHOSPHATASE 78 U/L (38-126); ALT/SGPT 23 U/L (21-72); AST/SGOT 27 U/L (17-59); BILIRUBIN,TOTAL 0.7 mg/dL (0.2-1.3); BLOOD UREA NITROGEN 17 mg/dL (9-20); CARBON DIOXIDE 28 mmol/L (22-30); GFR AFRICAN-AMERICAN > 60; GLUCOSE,RANDOM 147 mg/dL (75-110); TOTAL PROTEIN 7.7 g/dL (6.3-8.3)
[2016-09-11 08:04] LABS: CALCIUM 10.1 mg/dl (8.6-10.4); MAGNESIUM 2.1 mg/dL (1.6-2.3); PHOSPHOROUS 3.5 mg/dL (2.5-4.5)
[2016-09-11] MEDS: (Novolin R) Insulin Human Regular 100 units/ml vial SC SCH ×4 (08:39→22:00)
--- NOTE | 2016-09-11 11:14 | CP.PCM.PN ---
Subjective - Date & Time of Evaluation Date of Evaluation: 09/11/16 Time of Evaluation: 11:11 - Subjective Subjective: Pt admitted to hosp with urinary retention and gross hematuria.staff unable to re insert phipps. I placed phipps will schedule cysto tomorrow,please keep npo. [place] Objective - Vital Signs/Intake and Output Vital Signs (last 24 hours): Temp Pulse Resp BP Pulse Ox 97.9 F 91 H 20 138/76 97 09/11/16 08:00 09/11/16 08:00 09/11/16 08:00 09/11/16 08:00 09/11/16 08:00 Intake and Output: 09/11/16 09/11/16 06:59 18:59 Intake Total 400 Output Total 220 Balance 180 - Medications Medications: Current Medications Acetaminophen (Tylenol 325mg Tab) 650 mg PO Q6 PRN PRN Reason: Fever >100.4 F Finasteride (Proscar) 5 mg PO DAILY [facility] Ceftriaxone Sodium 1 gm/ (Sodium Chloride) 100 mls @ 100 mls/hr IVPB DAILY@ 0100 [facility] Last Admin: 09/11/16 01:51 Dose: 100 mls/hr Sodium Chloride (Sodium Chloride 0.9%) 1,000 mls @ 100 mls/hr IV .Q10H [facility] Last Admin: 09/11/16 02:05 Dose: 100 mls/hr Insulin Human Regular (Novolin R) 0 unit SC ACHS [facility] PRN Reason: Protocol Last Admin: 09/11/16 08:39 Dose: 2 unit Morphine Sulfate (Morphine) 2 mg IVP Q4H PRN PRN Reason: Pain, moderate (4-7) Pantoprazole Sodium (Protonix Ec Tab) 40 mg PO DAILY [facility] Pneumococcal Polyvalent Vaccine (Pneumovax 23 Vaccine) 0.5 ml IM .ONCE ONE Stop: 09/13/16 10:01 Tamsulosin HCl (Flomax) 0.4 mg PO DAILY [facility] - Labs Labs: 09/11/16 07:25 09/11/16 07:25 PT 11.9 SECONDS (9.7-12.2) 09/11/16 07:25 INR 1.1 09/11/16 07:25 APTT 29 SECONDS (21-34) 09/11/16 07:25
[2016-09-11] MEDS: Pantoprazole 40 mg EC Tab PO SCH (11:53)
--- NOTE | 2016-09-11 12:28 | CP.PCM.PN ---
<Zurdo Wiggins - Last Filed: 09/11/16 12:33> Subjective - Date & Time of Evaluation Date of Evaluation: 09/11/16 Time of Evaluation: 12:25 - Subjective Subjective: Medicine progress note. Attending: Dr. Ordonez Pt seen and examined at bedside. No acute distress. Denies fevers, chills, vomiting, diarrhea. Pt had catheter inserted this morning. Pt seen by Dr. Quintanilla and will have cystoscopy tomorrow. Pt to be NPO after midnight. Objective - Vital Signs/Intake and Output Vital Signs (last 24 hours): Temp Pulse Resp BP Pulse Ox 97.9 F 91 H 20 138/76 97 09/11/16 08:00 09/11/16 08:00 09/11/16 08:00 09/11/16 08:00 09/11/16 08:00 Intake and Output: 09/11/16 09/11/16 06:59 18:59 Intake Total 400 Output Total 220 Balance 180 - Medications Medications: Current Medications Acetaminophen (Tylenol 325mg Tab) 650 mg PO Q6 PRN PRN Reason: Fever >100.4 F Amlodipine Besylate (Norvasc) 10 mg PO DAILY [facility] Last Admin: 09/11/16 11:54 Dose: 10 mg Finasteride (Proscar) 5 mg PO DAILY [facility] Last Admin: 09/11/16 11:54 Dose: 5 mg Ceftriaxone Sodium 1 gm/ (Sodium Chloride) 100 mls @ 100 mls/hr IVPB DAILY@ 0100 [facility] Last Admin: 09/11/16 01:51 Dose: 100 mls/hr Sodium Chloride (Sodium Chloride 0.9%) 1,000 mls @ 100 mls/hr IV .Q10H [facility] Last Admin: 09/11/16 11:55 Dose: Not Given Insulin Human Regular (Novolin R) 0 unit SC ACHS [facility] PRN Reason: Protocol Last Admin: 09/11/16 08:39 Dose: 2 unit Morphine Sulfate (Morphine) 2 mg IVP Q4H PRN PRN Reason: Pain, moderate (4-7) Pantoprazole Sodium (Protonix Ec Tab) 40 mg PO DAILY [facility] Last Admin: 09/11/16 11:53 Dose: 40 mg Pneumococcal Polyvalent Vaccine (Pneumovax 23 Vaccine) 0.5 ml IM .ONCE ONE Stop: 09/13/16 10:01 Rosuvastatin Calcium (Crestor) 10 mg PO [facility] Tamsulosin HCl (Flomax) 0.4 mg PO DAILY [facility] Last Admin: 09/11/16 11:54 Dose: 0.4 mg - Labs Labs: 09/11/16 07:25 09/11/16 07:25 PT 11.9 SECONDS (9.7-12.2) 09/11/16 07:25 INR 1.1 09/11/16 07:25 APTT 29 SECONDS (21-34) 09/11/16 07:25 - Constitutional Appears: Non-toxic, No Acute Distress - Head Exam Head Exam: ATRAUMATIC, NORMAL INSPECTION, NORMOCEPHALIC - Eye Exam Eye Exam: EOMI - ENT Exam ENT Exam: Mucous Membranes Moist - Neck Exam Neck Exam: Full ROM, Normal Inspection - Respiratory Exam Respiratory Exam: NORMAL BREATHING PATTERN. absent: Respiratory Distress - Cardiovascular Exam Cardiovascular Exam: +S1, +S2 - GI/Abdominal Exam GI & Abdominal Exam: Soft. absent: Tenderness, Mass - Exam Exam: absent: NORMAL INSPECTION Additional comments: Madden catheter in place. - Back Exam Back Exam: NORMAL INSPECTION. absent: tenderness - Neurological Exam Neurological Exam: Alert, Awake, Oriented x3 - Psychiatric Exam Psychiatric exam: Normal Affect, Normal Mood - Skin Skin Exam: Dry, Intact, Normal Color, Warm Assessment and Plan - Assessment and Plan (Free Text) Assessment: This is an 81 yo male with past medical hx of DM, BPH, CAD presenting with chief complaint of urinary retention and hematuria 1. Urinary retention UA 2+ protein, 1+ glucose, 2+blood, , 81 WBC, 8201 RBC Urology consult, Dr. Quintanilla, recs appreciated f/u Urine Cx f/u Blood cx Rocephin 1Gm IVPB daily Abd/Pelv CT: f/u report I's & O's cystoscopy tomorrow 2. Hematuria UA 2+ protein, 1+ glucose, 2+blood, , 81 WBC, 8201 RBC Urology consult, Dr. Quintanilla, help appreciated f/u Urine Cx f/u Blood cx Rocephin 1Gm IVPB daily Abd/Pelv CT: f/u report pt now has catheter inserted cystoscopy tomorrow 3. Leukocytosis -white count now 20, monitor for fevers and chills 4. Hx of DM type 2 -continue pt on ISS -continue accuchecks -hold home metformin -continue crestor daily 5. Hx of Hypertension -we will restart home amlodipine 10 daily 6. Hx of BPH Tamsulosin 0.4mg Finasteride 5 mg daily 7. Hx of CAD -continue to monitor 8. GI/DVT ppx SCDs Protonix 40 mg PO daily pt is to be NPO after midnight discussed with Dr. Ordonez <Sudeep Ordonez - Last Filed: 09/15/16 15:47> Objective - Vital Signs/Intake and Output Vital Signs (last 24 hours): Temp Pulse Resp BP Pulse Ox 97.7 F 75 12 139/71 96 09/15/16 15:30 09/15/16 15:30 09/15/16 15:30 09/15/16 15:30 09/15/16 15:30 Intake and Output: 09/15/16 09/15/16 06:59 18:59 Intake Total 1500 60 Output Total 1600 450 Balance -100 -390 - Medications Medications: Current Medications Acetaminophen (Tylenol 325mg Tab) 650 mg PO Q6 PRN PRN Reason: Fever >100.4 F Last Admin: 09/14/16 00:35 Dose: 650 mg Amlodipine Besylate (Norvasc) 10 mg PO DAILY [facility] Last Admin: 09/15/16 10:24 Dose: 10 mg Finasteride (Proscar) 5 mg PO DAILY [facility] Last Admin: 09/15/16 11:32 Dose: Not Given Hydromorphone HCl (Dilaudid) 0.5 mg IVP Q5M PRN PRN Reason: Pain, moderate (4-7) Stop: 09/15/16 16:02 Ceftriaxone Sodium 1 gm/ (Sodium Chloride) 100 mls @ 100 mls/hr IVPB DAILY@ 0100 [facility] Last Admin: 09/15/16 01:02 Dose: 100 mls/hr Sodium Chloride (Sodium Chloride 0.9%) 1,000 mls @ 60 mls/hr IV .[id number] ONE Stop: 09/16/16 02:45 Last Admin: 09/15/16 10:25 Dose: 60 mls/hr Insulin Human Regular (Novolin R) 0 unit SC ACHS [facility] PRN Reason: Protocol Last Admin: 09/15/16 12:00 Dose: Not Given Morphine Sulfate (Morphine) 2 mg IVP Q4H PRN PRN Reason: Pain, moderate (4-7) Last Admin: 09/14/16 00:35 Dose: 2 mg Ondansetron HCl (Zofran Inj) 4 mg IVP ONCE PRN PRN Reason: Nausea/Vomiting Stop: 09/15/16 16:03 Pantoprazole Sodium (Protonix Ec Tab) 40 mg PO DAILY [facility] Last Admin: 09/15/16 11:32 Dose: Not Given Rosuvastatin Calcium (Crestor) 10 mg PO HS [facility] Last Admin: 09/14/16 21:38 Dose: 10 mg Sodium Chloride ([place] Baby Saline 30 Ml) 1 ml JEFF Q4 PRN PRN Reason: Dry nasal passages Last Admin: 09/15/16 06:32 Dose: 1 ml Tamsulosin HCl (Flomax) 0.4 mg PO DAILY [facility] Last Admin: 09/15/16 11:31 Dose: Not Given - Labs Labs: 09/15/16 07:07 09/15/16 07:07 PT 11.9 SECONDS (9.7-12.2) 09/11/16 07:25 INR 1.1 09/11/16 07:25 APTT 29 SECONDS (21-34) 09/11/16 07:25 Attending/Attestation - Attestation I have personally seen and examined this patient.: Yes I have fully participated in the care of the patient.: Yes I have reviewed all pertinent clinical information, including history, physical exam and plan: Yes Notes (Text): 09/15/16 15:46 Patient was seen and examined at bedside This is a late computer entry Continue management of urinary obstruction as per urology I discussed the plan of care with the resident and agree with the above history and physical and assessment/plan by the resident.
[2016-09-12] MEDS ORDERED: Gentamicin 160 MG in Sodium Chloride 0.9% 100 ML IVPB ONE (07:38)
[2016-09-12 08:12] LABS: BASO # 0.1 K/uL (0.0-0.2); BASO % 0.9 % (0.0-2.0); EOS # 0.3 K/uL (0.0-0.7); EOS % 2.4 % (0.0-4.0); HEMATOCRIT 33.1 % (35.0-51.0); LYMPH # 2.3 K/uL (1.0-4.3); LYMPH % 18.4 % (20.0-40.0); MEAN CELL VOLUME 81.7 fL (80.0-94.0); MEAN CORPUSCULAR HEMOGLOBIN 26.6 pg (27.0-31.0); MEAN CORPUSCULAR HGB CONC 32.6 g/dL (33.0-37.0); MEAN PLATELET VOLUME 8.7 fL (7.2-11.7); MONO # 0.9 K/uL (0.0-0.8); MONO % 7.1 % (0.0-10.0); RED CELL DISTRIBUTION WIDTH 16.7 % (11.5-14.5); WHITE BLOOD COUNT 12.4 K/uL (4.8-10.8)
[2016-09-12 08:59] LABS: CHLORIDE 100 mmol/L (98-107); POTASSIUM 3.9 mmol/L (3.6-5.2); SODIUM 136 mmol/L (132-148)
[2016-09-12 09:01] LABS: AST/SGOT 40 U/L (17-59); BILIRUBIN,TOTAL 0.7 mg/dL (0.2-1.3); CARBON DIOXIDE 23 mmol/L (22-30); GFR AFRICAN-AMERICAN > 60
[2016-09-12 09:02] LABS: ALB/GLOB RATIO 1.2 (1.0-2.1); ALKALINE PHOSPHATASE 82 U/L (38-126); ALT/SGPT 26 U/L (21-72); BLOOD UREA NITROGEN 13 mg/dL (9-20); CALCIUM 9.7 mg/dl (8.6-10.4); GLUCOSE,RANDOM 236 mg/dL (75-110); TOTAL PROTEIN 7.6 g/dL (6.3-8.3)
[2016-09-12] MEDS: (Novolin R) Insulin Human Regular 100 units/ml vial SC SCH ×4 (09:28→21:45)
[2016-09-12] MEDS: Pantoprazole 40 mg EC Tab PO SCH (09:35)
[2016-09-12] MEDS: Sodium Chloride 0.9% 1,000 ML IV SCH ×2 (09:36→20:00)
[2016-09-12] MEDS ORDERED: Lidocaine 2% Jelly (Uro-Jet) ONE (12:32)
[2016-09-12] MEDS ORDERED: Ciprofloxacin 400mg/200ml D5W 400 MG/200 ML BAG IVPB ONE (12:32)
[2016-09-12] MEDS ORDERED: Lactated Ringer's 1,000 ML IV ONE (12:40)
[2016-09-12] MEDS ORDERED: Propofol 10 mg/ml Inj (20 ML) ONE (12:42)
[2016-09-12] MEDS ORDERED: Midazolam 2 MG/2 ML VIAL ONE (12:42)
[2016-09-12] MEDS ORDERED: HYDROmorphone 0.5 mg/0.5 ml ISec IVP PRN (12:50)
--- NOTE | 2016-09-12 12:57 | CON ---
DATE: 09/10/2016 REASON FOR CONSULTATION: Acute urinary retention. HISTORY OF PRESENT ILLNESS: The patient was admitted on 09/10 and had a Madden catheter placed for acut e urinary retention. The catheter was removed and the patient went into retention again and the staf f could not insert the catheter. The patient has a history of BPH in the past. He was here several weeks ago with similar complaints but left the hospital AMA. The patient says he is having trouble u rinating, slowing of the stream and has not urinated for 8 hours. He has a history of having a TURP many years ago by Dr. Max Hays. Further history is noncontributory. REVIEW OF SYSTEMS: RESPIRATORY: The patient has no respiratory complaints. No shortness of breath, no wheezing. CARDIAC: The patient has no cardiac complaints. No evidence for chest pain or palpitations. GASTROINTESTINAL: The patient has no history of constipation or change in bowel habits, or diarrhea. He has no history of abdominal pain. GENITOURINARY: The patient has a history of previous TURP. He now is having difficulty voiding for several months. ORTHOPEDIC: Noncontributory. SOCIAL HISTORY: Noncontributory. The patient neither drinks nor smokes. NEUROLOGICAL: The patient has no history of weakness or stroke or any paresthesias. PHYSICAL EXAMINATION: VITAL SIGNS: Within normal limits. HEAD, EYES, EARS, NOSE, AND THROAT: Within normal limits. NECK: Supple. There are no bruits, nodes, or mass. CHEST: Clear bilaterally. There are no rales or rhonchi. HEART: Normal sinus rhythm. There is no murmur. ABDOMEN: Soft, nontender. The bladder is distended 4-5 fingers above the suprapubic bone. EXTREMITIES: Normal. Testicles, epididymis, cord, and penis are normal. RECTAL: Shows a 3-4+ non-nodular prostate without induration. IMPRESSION: He has acute urinary retention. PLAN: After reviewing the chart and the x-rays and the CAT scan showing an enlarged prostate, we hav e elected to place a Madden catheter. A #20 coude catheter was placed and is in good position. We palomo ggest that the patient have a cystoscopy to evaluate the gross hematuria and we will schedule this th e next available date. Brett Quintanilla MD cc: [id number] TT: 09/12/2016 12:57:01 Confirmation # [id number] Dictation # [id number]
--- NOTE | 2016-09-12 13:06 | PCM.SURG1 ---
Surgeon's Initial Post Op Note - Surgeon's Notes Surgeon: prince [employer] Engineer: raysa Type of Anesthesia: General LMA Anesthesia Administered By: staff Pre-Operative Diagnosis: BPH/Hematuria/urinary retention Operative Findings: BPH HOLT Hematuria due to BPH urinary retention Post-Operative Diagnosis: same Operation Performed: cysto Specimen/Specimens Removed: na Estimated Blood Loss: EBL {In ML}: 0 Blood Products Given: N/A Drains Used: No Drains Post-Op Condition: Good Date of Surgery/Procedure: 09/12/16 Time of Surgery/Procedure: 13:05
--- NOTE | 2016-09-12 13:10 | OP ---
PROCEDURE DATE: 09/12/2016 PREOPERATIVE DIAGNOSES: Gross hematuria and urinary retention. POSTOPERATIVE DIAGNOSES: Gross hematuria secondary to benign prostatic hypertrophy causing bladder o utlet obstruction and urinary retention. PROCEDURE: Cystoscopy, panendoscopy. SURGEON: Brett Quintanilla MD PROCEDURE: The patient was asked to sign a detailed informed consent prior to the procedure. He was cystoscoped with a #21 Storz panendoscope. The pendulous and membranous urethra was normal. The pr ostatic urethra showed evidence of previous resection but significant regrowth of apical tissue and l ateral tissue. The bladder was entered atraumatically. There was no evidence of urothelial tumor or stone. There was evidence of clots within the bladder which were evacuated. Based on the above fin dings, the patient is a candidate for TURP or laser prostatectomy. Madden catheter was reinserted. T he patient tolerated the rest of the procedure very well. Brett Quintanilla MD cc: [phone] TT: 09/12/2016 13:09:57 sn
--- NOTE | 2016-09-12 16:04 | CP.PCM.PN ---
<Zurdo Wiggins - Last Filed: 09/12/16 16:04> Subjective - Date & Time of Evaluation Date of Evaluation: 09/12/16 Time of Evaluation: 16:00 - Subjective Subjective: Medicine progress note. Attending Dr. Ordonez Pt seen and examined at bedside. No acute distress. Pt with catheter inserted. Had cystoscopy today and will go for further procedure on Sunday. Discussed with Dr. Quintanilla. No fevers, chills, chest pain, sob, vomiting, diarrhea. Objective - Vital Signs/Intake and Output Vital Signs (last 24 hours): Temp Pulse Resp BP Pulse Ox 98.0 F 70 11 L 121/63 98 09/12/16 14:30 09/12/16 14:30 09/12/16 14:30 09/12/16 14:30 09/12/16 14:30 Intake and Output: 09/12/16 09/12/16 06:59 18:59 Intake Total 1100 800 Output Total 950 1500 Balance 150 -700 - Medications Medications: Current Medications Acetaminophen (Tylenol 325mg Tab) 650 mg PO Q6 PRN PRN Reason: Fever >100.4 F Amlodipine Besylate (Norvasc) 10 mg PO DAILY [facility] Last Admin: 09/12/16 10:52 Dose: 10 mg Finasteride (Proscar) 5 mg PO DAILY [facility] Last Admin: 09/12/16 09:35 Dose: Not Given Ceftriaxone Sodium 1 gm/ (Sodium Chloride) 100 mls @ 100 mls/hr IVPB DAILY@ 0100 [facility] Last Admin: 09/12/16 00:31 Dose: 100 mls/hr Sodium Chloride (Sodium Chloride 0.9%) 1,000 mls @ 100 mls/hr IV .Q10H [facility] Last Admin: 09/12/16 09:36 Dose: 100 mls/hr Insulin Human Regular (Novolin R) 0 unit SC ACHS [facility] PRN Reason: Protocol Last Admin: 09/12/16 13:39 Dose: Not Given Morphine Sulfate (Morphine) 2 mg IVP Q4H PRN PRN Reason: Pain, moderate (4-7) Last Admin: 09/11/16 17:20 Dose: 2 mg Pantoprazole Sodium (Protonix Ec Tab) 40 mg PO DAILY [facility] Last Admin: 09/12/16 09:35 Dose: Not Given Pneumococcal Polyvalent Vaccine (Pneumovax 23 Vaccine) 0.5 ml IM .ONCE ONE Stop: 09/13/16 10:01 Rosuvastatin Calcium (Crestor) 10 mg PO HS [facility] Last Admin: 09/11/16 21:49 Dose: 10 mg Tamsulosin HCl (Flomax) 0.4 mg PO DAILY [facility] Last Admin: 09/12/16 09:39 Dose: Not Given - Labs Labs: 09/12/16 08:02 09/12/16 08:02 PT 11.9 SECONDS (9.7-12.2) 09/11/16 07:25 INR 1.1 09/11/16 07:25 APTT 29 SECONDS (21-34) 09/11/16 07:25 - Constitutional Appears: Non-toxic, No Acute Distress - Head Exam Head Exam: ATRAUMATIC, NORMAL INSPECTION, NORMOCEPHALIC - Eye Exam Eye Exam: EOMI - ENT Exam ENT Exam: Mucous Membranes Moist - Respiratory Exam Respiratory Exam: Clear to Ausculation Bilateral, NORMAL BREATHING PATTERN - Cardiovascular Exam Cardiovascular Exam: REGULAR RHYTHM, +S1, +S2 - GI/Abdominal Exam GI & Abdominal Exam: Distended. absent: Tenderness - Exam Exam: absent: NORMAL INSPECTION Additional comments: Catheter in place - Extremities Exam Extremities Exam: Full ROM, Normal Inspection - Neurological Exam Neurological Exam: Alert, Awake, Oriented x3 - Psychiatric Exam Psychiatric exam: Normal Affect, Normal Mood - Skin Skin Exam: Dry, Intact, Normal Color, Warm Assessment and Plan - Assessment and Plan (Free Text) Assessment: This is an 81 yo male with past medical hx of DM, BPH, CAD presenting with chief complaint of urinary retention and hematuria 1. Urinary retention UA 2+ protein, 1+ glucose, 2+blood, , 81 WBC, 8201 RBC Urology consult, Dr. Quintanilla, recs appreciated urine culture negative f/u Blood cx Rocephin 1Gm IVPB daily, day 2 Abd/Pelv CT: f/u report s/p cystoscopy shows enlarged prostate will undergo greenlight laser procedure on sunday 2. Hematuria UA 2+ protein, 1+ glucose, 2+blood, , 81 WBC, 8201 RBC Urology consult, Dr. Quintanilla, help appreciated urine culture negative f/u Blood cx Rocephin 1Gm IVPB daily, day 2 Abd/Pelv CT: f/u report pt now has catheter inserted s/p cystoscopy, greenlight laser procedure on sunday 3. Leukocytosis -white count now 12, trending down, continue to monitor 4. Hx of DM type 2 -continue pt on ISS -continue accuchecks -hold home metformin -continue crestor daily 5. Hx of Hypertension -continue amlodipine 10 daily 6. Hx of BPH Tamsulosin 0.4mg Finasteride 5 mg daily 7. Hx of CAD -continue to monitor 8. GI/DVT ppx SCDs Protonix 40 mg PO daily to be discussed with Dr. Ordonez <Sudeep Ordonez - Last Filed: 09/15/16 15:49> Objective - Vital Signs/Intake and Output Vital Signs (last 24 hours): Temp Pulse Resp BP Pulse Ox 97.7 F 75 12 139/71 96 09/15/16 15:30 09/15/16 15:30 09/15/16 15:30 09/15/16 15:30 09/15/16 15:30 Intake and Output: 09/15/16 09/15/16 06:59 18:59 Intake Total 1500 60 Output Total 1600 450 Balance -100 -390 - Medications Medications: Current Medications Acetaminophen (Tylenol 325mg Tab) 650 mg PO Q6 PRN PRN Reason: Fever >100.4 F Last Admin: 09/14/16 00:35 Dose: 650 mg Amlodipine Besylate (Norvasc) 10 mg PO DAILY [facility] Last Admin: 09/15/16 10:24 Dose: 10 mg Finasteride (Proscar) 5 mg PO DAILY [facility] Last Admin: 09/15/16 11:32 Dose: Not Given Hydromorphone HCl (Dilaudid) 0.5 mg IVP Q5M PRN PRN Reason: Pain, moderate (4-7) Stop: 09/15/16 16:02 Ceftriaxone Sodium 1 gm/ (Sodium Chloride) 100 mls @ 100 mls/hr IVPB DAILY@ 0100 [facility] Last Admin: 09/15/16 01:02 Dose: 100 mls/hr Sodium Chloride (Sodium Chloride 0.9%) 1,000 mls @ 60 mls/hr IV .[id number] ONE Stop: 09/16/16 02:45 Last Admin: 09/15/16 10:25 Dose: 60 mls/hr Insulin Human Regular (Novolin R) 0 unit SC ACHS [facility] PRN Reason: Protocol Last Admin: 09/15/16 12:00 Dose: Not Given Morphine Sulfate (Morphine) 2 mg IVP Q4H PRN PRN Reason: Pain, moderate (4-7) Last Admin: 09/14/16 00:35 Dose: 2 mg Ondansetron HCl (Zofran Inj) 4 mg IVP ONCE PRN PRN Reason: Nausea/Vomiting Stop: 09/15/16 16:03 Pantoprazole Sodium (Protonix Ec Tab) 40 mg PO DAILY [facility] Last Admin: 09/15/16 11:32 Dose: Not Given Rosuvastatin Calcium (Crestor) 10 mg PO HS [facility] Last Admin: 09/14/16 21:38 Dose: 10 mg Sodium Chloride ([place] Baby Saline 30 Ml) 1 ml JEFF Q4 PRN PRN Reason: Dry nasal passages Last Admin: 09/15/16 06:32 Dose: 1 ml Tamsulosin HCl (Flomax) 0.4 mg PO DAILY [facility] Last Admin: 09/15/16 11:31 Dose: Not Given - Labs Labs: 09/15/16 07:07 09/15/16 07:07 PT 11.9 SECONDS (9.7-12.2) 09/11/16 07:25 INR 1.1 09/11/16 07:25 APTT 29 SECONDS (21-34) 09/11/16 07:25 Attending/Attestation - Attestation I have personally seen and examined this patient.: Yes I have fully participated in the care of the patient.: Yes I have reviewed all pertinent clinical information, including history, physical exam and plan: Yes Notes (Text): 09/15/16 15:47 Patient was seen and examined at bedside with the resident Continue current management. Madden's catheter is in place Plan for greenlight laser procedure on Sunday. I discussed the plan of care with the resident. I agree with the above history and physical and assessment/plan by the resident.
[2016-09-12] MEDS ORDERED: Morphine 4 MG/ML VIAL IVP STA (21:05)
[2016-09-13] MEDS: Sodium Chloride 0.9% 1,000 ML IV SCH (00:11)
[2016-09-13] MEDS: (Novolin R) Insulin Human Regular 100 units/ml vial SC SCH ×3 (07:45→18:01)
[2016-09-13 08:13] LABS: BASO # 0.1 K/uL (0.0-0.2); BASO % 1.1 % (0.0-2.0); EOS # 0.3 K/uL (0.0-0.7); EOS % 2.1 % (0.0-4.0); HEMATOCRIT 31.5 % (35.0-51.0); LYMPH # 2.1 K/uL (1.0-4.3); LYMPH % 15.2 % (20.0-40.0); MEAN CELL VOLUME 82.6 fL (80.0-94.0); MEAN CORPUSCULAR HEMOGLOBIN 26.5 pg (27.0-31.0); MEAN PLATELET VOLUME 8.7 fL (7.2-11.7); MONO # 0.9 K/uL (0.0-0.8); MONO % 6.7 % (0.0-10.0); RED CELL DISTRIBUTION WIDTH 16.1 % (11.5-14.5)
[2016-09-13 09:05] LABS: CHLORIDE 99 mmol/L (98-107); SODIUM 136 mmol/L (132-148)
[2016-09-13 09:06] LABS: POTASSIUM 3.7 mmol/L (3.6-5.2)
[2016-09-13 09:08] LABS: ALB/GLOB RATIO 1.2 (1.0-2.1); ALKALINE PHOSPHATASE 72 U/L (38-126); AST/SGOT 28 U/L (17-59); BILIRUBIN,TOTAL 0.6 mg/dL (0.2-1.3); BLOOD UREA NITROGEN 11 mg/dL (9-20); CARBON DIOXIDE 24 mmol/L (22-30); GFR AFRICAN-AMERICAN > 60; GLUCOSE,RANDOM 254 mg/dL (75-110); PHOSPHOROUS 2.9 mg/dL (2.5-4.5); TOTAL PROTEIN 7.2 g/dL (6.3-8.3)
[2016-09-13 09:09] LABS: ALT/SGPT 23 U/L (21-72); CALCIUM 9.3 mg/dl (8.6-10.4); MAGNESIUM 1.8 mg/dL (1.6-2.3)
[2016-09-13] MEDS ORDERED: Pneumococcal 23-Valent Vaccine IM ONE (10:00)
[2016-09-13] MEDS: Pantoprazole 40 mg EC Tab PO SCH (10:17)
--- NOTE | 2016-09-13 14:59 | CP.PCM.PN ---
<Zurdo Wiggins - Last Filed: 09/13/16 15:00> Subjective - Date & Time of Evaluation Date of Evaluation: 09/13/16 Time of Evaluation: 14:55 - Subjective Subjective: Medicine progress note. Attending: Dr. Ordonez Pt seen and examined at bedside. No acute distress. No events overnight. Pt denies fevers, chills, cough, cp, sob, vomiting, diarrhea. Pt to have greenlight laser procedure sunday. Objective - Vital Signs/Intake and Output Vital Signs (last 24 hours): Temp Pulse Resp BP Pulse Ox 98.1 F 85 20 155/69 H 96 09/13/16 07:39 09/13/16 07:39 09/13/16 07:39 09/13/16 07:39 09/13/16 07:39 Intake and Output: 09/13/16 09/13/16 06:59 18:59 Intake Total 1750 Output Total 1850 800 Balance -100 -800 - Medications Medications: Current Medications Acetaminophen (Tylenol 325mg Tab) 650 mg PO Q6 PRN PRN Reason: Fever >100.4 F Amlodipine Besylate (Norvasc) 10 mg PO DAILY [facility] Last Admin: 09/13/16 10:17 Dose: 10 mg Finasteride (Proscar) 5 mg PO DAILY [facility] Last Admin: 09/12/16 09:35 Dose: Not Given Ceftriaxone Sodium 1 gm/ (Sodium Chloride) 100 mls @ 100 mls/hr IVPB DAILY@ 0100 [facility] Last Admin: 09/13/16 00:09 Dose: 100 mls/hr Sodium Chloride (Sodium Chloride 0.9%) 1,000 mls @ 100 mls/hr IV .Q10H [facility] Last Admin: 09/13/16 00:11 Dose: 100 mls/hr Insulin Human Regular (Novolin R) 0 unit SC ACHS [facility] PRN Reason: Protocol Last Admin: 09/13/16 07:45 Dose: 4 unit Morphine Sulfate (Morphine) 2 mg IVP Q4H PRN PRN Reason: Pain, moderate (4-7) Last Admin: 09/12/16 17:52 Dose: 2 mg Pantoprazole Sodium (Protonix Ec Tab) 40 mg PO DAILY [facility] Last Admin: 09/13/16 10:17 Dose: 40 mg Rosuvastatin Calcium (Crestor) 10 mg PO HS [facility] Last Admin: 09/12/16 21:33 Dose: 10 mg Tamsulosin HCl (Flomax) 0.4 mg PO DAILY [facility] Last Admin: 09/13/16 10:17 Dose: 0.4 mg - Labs Labs: 09/13/16 08:04 09/13/16 08:04 PT 11.9 SECONDS (9.7-12.2) 09/11/16 07:25 INR 1.1 09/11/16 07:25 APTT 29 SECONDS (21-34) 09/11/16 07:25 - Constitutional Appears: Non-toxic, No Acute Distress - Head Exam Head Exam: NORMOCEPHALIC - Eye Exam Eye Exam: EOMI - ENT Exam ENT Exam: Mucous Membranes Moist - Respiratory Exam Respiratory Exam: Clear to Ausculation Bilateral, NORMAL BREATHING PATTERN. absent: Respiratory Distress - Cardiovascular Exam Cardiovascular Exam: +S1, +S2 - GI/Abdominal Exam GI & Abdominal Exam: Soft, Normal Bowel Sounds. absent: Tenderness - Extremities Exam Extremities Exam: Full ROM, Normal Capillary Refill, Normal Inspection. absent : Joint Swelling, Pedal Edema - Neurological Exam Neurological Exam: Alert, Awake, Oriented x3 - Psychiatric Exam Psychiatric exam: Normal Affect, Normal Mood - Skin Skin Exam: Dry, Intact, Normal Color, Warm Assessment and Plan - Assessment and Plan (Free Text) Assessment: This is an 81 yo male with past medical hx of DM, BPH, CAD presenting with chief complaint of urinary retention and hematuria 1. Urinary retention UA 2+ protein, 1+ glucose, 2+blood, , 81 WBC, 8201 RBC Urology consult, Dr. Quintanilla, recs appreciated urine culture negative f/u Blood cx Rocephin 1Gm IVPB daily, day 3 Abd/Pelv CT: f/u report s/p cystoscopy shows enlarged prostate will undergo greenlight laser procedure on sunday 2. Hematuria UA 2+ protein, 1+ glucose, 2+blood, , 81 WBC, 8201 RBC Urology consult, Dr. Quintanilla, help appreciated urine culture negative f/u Blood cx Rocephin 1Gm IVPB daily, day 3 Abd/Pelv CT: f/u report pt now has catheter inserted s/p cystoscopy, greenlight laser procedure on sunday 3. Leukocytosis -white count now 14, continue to monitor 4. Hx of DM type 2 -continue pt on ISS -continue accuchecks -hold home metformin -continue crestor daily 5. Hx of Hypertension -continue amlodipine 10 daily 6. Hx of BPH Tamsulosin 0.4mg Finasteride 5 mg daily 7. Hx of CAD -continue to monitor 8. GI/DVT ppx SCDs Protonix 40 mg PO daily discussed with Dr. Ordonez <Sudeep Ordonez - Last Filed: 09/15/16 16:19> Objective - Vital Signs/Intake and Output Vital Signs (last 24 hours): Temp Pulse Resp BP Pulse Ox 97.7 F 75 12 139/71 96 09/15/16 15:30 09/15/16 15:30 09/15/16 15:30 09/15/16 15:30 09/15/16 15:30 Intake and Output: 09/15/16 09/15/16 06:59 18:59 Intake Total 1500 60 Output Total 1600 600 Balance -100 -540 - Medications Medications: Current Medications Acetaminophen (Tylenol 325mg Tab) 650 mg PO Q6 PRN PRN Reason: Fever >100.4 F Last Admin: 09/14/16 00:35 Dose: 650 mg Amlodipine Besylate (Norvasc) 10 mg PO DAILY [facility] Last Admin: 09/15/16 10:24 Dose: 10 mg Finasteride (Proscar) 5 mg PO DAILY [facility] Last Admin: 09/15/16 11:32 Dose: Not Given Hydromorphone HCl (Dilaudid) 0.5 mg IVP Q5M PRN PRN Reason: Pain, moderate (4-7) Stop: 09/15/16 16:02 Ceftriaxone Sodium 1 gm/ (Sodium Chloride) 100 mls @ 100 mls/hr IVPB DAILY@ 0100 [facility] Last Admin: 09/15/16 01:02 Dose: 100 mls/hr Sodium Chloride (Sodium Chloride 0.9%) 1,000 mls @ 60 mls/hr IV .[id number] ONE Stop: 09/16/16 02:45 Last Admin: 09/15/16 10:25 Dose: 60 mls/hr Insulin Human Regular (Novolin R) 0 unit SC ACHS [facility] PRN Reason: Protocol Last Admin: 09/15/16 12:00 Dose: Not Given Morphine Sulfate (Morphine) 2 mg IVP Q4H PRN PRN Reason: Pain, moderate (4-7) Last Admin: 09/14/16 00:35 Dose: 2 mg Ondansetron HCl (Zofran Inj) 4 mg IVP ONCE PRN PRN Reason: Nausea/Vomiting Stop: 09/15/16 16:03 Pantoprazole Sodium (Protonix Ec Tab) 40 mg PO DAILY [facility] Last Admin: 09/15/16 11:32 Dose: Not Given Rosuvastatin Calcium (Crestor) 10 mg PO HS [facility] Last Admin: 09/14/16 21:38 Dose: 10 mg Sodium Chloride ([place] Baby Saline 30 Ml) 1 ml JEFF Q4 PRN PRN Reason: Dry nasal passages Last Admin: 09/15/16 06:32 Dose: 1 ml Tamsulosin HCl (Flomax) 0.4 mg PO DAILY [facility] Last Admin: 09/15/16 11:31 Dose: Not Given - Labs Labs: 09/15/16 07:07 09/15/16 07:07 PT 11.9 SECONDS (9.7-12.2) 09/11/16 07:25 INR 1.1 09/11/16 07:25 APTT 29 SECONDS (21-34) 09/11/16 07:25 Attending/Attestation - Attestation I have personally seen and examined this patient.: Yes I have fully participated in the care of the patient.: Yes I have reviewed all pertinent clinical information, including history, physical exam and plan: Yes Notes (Text): 09/15/16 16:19 Patient was seen and examined at bedside with the resident This is late computer entry Patient is scheduled for greenlight laser procedure by urology on Sunday Continue IV antibiotics I discussed the plan of care with the resident and agree with the above history and physical and assessment/plan by the resident.
[2016-09-14] MEDS: Sodium Chloride 0.9% 1,000 ML IV SCH ×2 (00:30)
[2016-09-14] MEDS ORDERED: HYDROmorphone 1 mg/ml ISec IVP STA (01:03)
[2016-09-14] MEDS: (Novolin R) Insulin Human Regular 100 units/ml vial SC SCH ×6 (07:30→21:38)
[2016-09-14 08:10] LABS: BASO # 0.1 K/uL (0.0-0.2); BASO % 1.1 % (0.0-2.0); EOS # 0.4 K/uL (0.0-0.7); EOS % 3.4 % (0.0-4.0); HEMATOCRIT 30.9 % (35.0-51.0); LYMPH # 2.8 K/uL (1.0-4.3); MEAN CELL VOLUME 82.2 fL (80.0-94.0); MEAN CORPUSCULAR HEMOGLOBIN 26.6 pg (27.0-31.0); MEAN CORPUSCULAR HGB CONC 32.3 g/dL (33.0-37.0); MONO # 0.9 K/uL (0.0-0.8); MONO % 7.1 % (0.0-10.0); NRBC % 0.1 % (0.0-2.0); RED CELL DISTRIBUTION WIDTH 16.4 % (11.5-14.5); WHITE BLOOD COUNT 12.8 K/uL (4.8-10.8)
[2016-09-14 08:51] LABS: ALB/GLOB RATIO 1.1 (1.0-2.1); ALKALINE PHOSPHATASE 69 U/L (38-126); ALT/SGPT 32 U/L (21-72); AST/SGOT 25 U/L (17-59); BILIRUBIN,TOTAL < 0.1 mg/dL (0.2-1.3); BLOOD UREA NITROGEN 11 mg/dL (9-20); CALCIUM 9.2 mg/dl (8.6-10.4); CARBON DIOXIDE 26 mmol/L (22-30); CHLORIDE 100 mmol/L (98-107); GFR AFRICAN-AMERICAN > 60; GLUCOSE,RANDOM 250 mg/dL (75-110); MAGNESIUM 1.8 mg/dL (1.6-2.3); PHOSPHOROUS 3.6 mg/dL (2.5-4.5); POTASSIUM 3.7 mmol/L (3.6-5.2); SODIUM 134 mmol/L (132-148); TOTAL PROTEIN 6.7 g/dL (6.3-8.3)
[2016-09-14] MEDS: Pantoprazole 40 mg EC Tab PO SCH (09:31)
--- NOTE | 2016-09-14 13:37 | CP.PCM.PN ---
<Zurdo Wiggins - Last Filed: 09/14/16 13:38> Subjective - Date & Time of Evaluation Date of Evaluation: 09/14/16 Time of Evaluation: 13:35 - Subjective Subjective: Med progress note. Attending: Dr. Ordonez Pt seen and examined at bedside. No acute distress. No pain now, but was having pain around meatus and passing blood out of catheter overnight. Will flush catheter in future. No fevers, chills, chest pain, sob, vomiting, diarrhea. Laser procedure on sunday. Objective - Vital Signs/Intake and Output Vital Signs (last 24 hours): Temp Pulse Resp BP Pulse Ox 97.6 F 80 18 155/69 H 96 09/14/16 07:00 09/14/16 07:00 09/14/16 07:00 09/14/16 07:00 09/14/16 07:00 Intake and Output: 09/14/16 09/14/16 06:59 18:59 Intake Total 420 Output Total 900 Balance -480 - Medications Medications: Current Medications Acetaminophen (Tylenol 325mg Tab) 650 mg PO Q6 PRN PRN Reason: Fever >100.4 F Last Admin: 09/14/16 00:35 Dose: 650 mg Amlodipine Besylate (Norvasc) 10 mg PO DAILY [facility] Last Admin: 09/14/16 09:31 Dose: 10 mg Finasteride (Proscar) 5 mg PO DAILY [facility] Last Admin: 09/14/16 09:33 Dose: 5 mg Ceftriaxone Sodium 1 gm/ (Sodium Chloride) 100 mls @ 100 mls/hr IVPB DAILY@ 0100 [facility] Last Admin: 09/14/16 00:26 Dose: 100 mls/hr Insulin Human Regular (Novolin R) 0 unit SC ACHS [facility] PRN Reason: Protocol Last Admin: 09/14/16 12:27 Dose: 4 unit Morphine Sulfate (Morphine) 2 mg IVP Q4H PRN PRN Reason: Pain, moderate (4-7) Last Admin: 09/14/16 00:35 Dose: 2 mg Pantoprazole Sodium (Protonix Ec Tab) 40 mg PO DAILY [facility] Last Admin: 09/14/16 09:31 Dose: 40 mg Rosuvastatin Calcium (Crestor) 10 mg PO HS [facility] Last Admin: 09/13/16 21:50 Dose: 10 mg Tamsulosin HCl (Flomax) 0.4 mg PO DAILY [facility] Last Admin: 09/14/16 09:31 Dose: 0.4 mg - Labs Labs: 09/14/16 08:02 09/14/16 08:02 PT 11.9 SECONDS (9.7-12.2) 09/11/16 07:25 INR 1.1 09/11/16 07:25 APTT 29 SECONDS (21-34) 09/11/16 07:25 - Constitutional Appears: Non-toxic, No Acute Distress - Head Exam Head Exam: ATRAUMATIC, NORMAL INSPECTION, NORMOCEPHALIC - Eye Exam Eye Exam: EOMI - ENT Exam ENT Exam: Mucous Membranes Moist - Neck Exam Neck Exam: Full ROM, Normal Inspection - Respiratory Exam Respiratory Exam: NORMAL BREATHING PATTERN. absent: Respiratory Distress - Cardiovascular Exam Cardiovascular Exam: +S1, +S2 - GI/Abdominal Exam GI & Abdominal Exam: Soft, Normal Bowel Sounds. absent: Tenderness - Extremities Exam Extremities Exam: Full ROM, Normal Inspection - Neurological Exam Neurological Exam: Alert, Awake, Oriented x3 - Psychiatric Exam Psychiatric exam: Normal Affect, Normal Mood - Skin Skin Exam: Dry, Intact, Normal Color, Warm Assessment and Plan - Assessment and Plan (Free Text) Assessment: This is an 81 yo male with past medical hx of DM, BPH, CAD presenting with chief complaint of urinary retention and hematuria 1. Urinary retention UA 2+ protein, 1+ glucose, 2+blood, , 81 WBC, 8201 RBC Urology consult, Dr. Quintanilla, recs appreciated urine culture negative f/u Blood cx Rocephin 1Gm IVPB daily, day 4 Abd/Pelv CT: f/u report s/p cystoscopy shows enlarged prostate will undergo greenlight laser procedure on sunday will flush catheter if further clots pass overnight 2. Hematuria UA 2+ protein, 1+ glucose, 2+blood, , 81 WBC, 8201 RBC Urology consult, Dr. Quintanilla, help appreciated urine culture negative f/u Blood cx Rocephin 1Gm IVPB daily, day 4 Abd/Pelv CT: f/u report pt now has catheter inserted s/p cystoscopy, greenlight laser procedure on sunday 3. Leukocytosis -continue to monitor, trending down 4. Hx of DM type 2 -continue pt on ISS -continue accuchecks -hold home metformin -continue crestor daily 5. Hx of Hypertension -continue amlodipine 10 daily 6. Hx of BPH Tamsulosin 0.4mg Finasteride 5 mg daily 7. Hx of CAD -continue to monitor 8. GI/DVT ppx SCDs Protonix 40 mg PO daily discussed with Dr. Ordonez <Sudeep Ordonez - Last Filed: 09/15/16 15:40> Objective - Vital Signs/Intake and Output Vital Signs (last 24 hours): Temp Pulse Resp BP Pulse Ox 97.5 F L 78 10 L 170/79 H 98 09/15/16 14:15 09/15/16 15:15 09/15/16 15:15 09/15/16 15:15 09/15/16 15:15 Intake and Output: 09/15/16 09/15/16 06:59 18:59 Intake Total 1500 60 Output Total 1600 450 Balance -100 -390 - Medications Medications: Current Medications Acetaminophen (Tylenol 325mg Tab) 650 mg PO Q6 PRN PRN Reason: Fever >100.4 F Last Admin: 09/14/16 00:35 Dose: 650 mg Amlodipine Besylate (Norvasc) 10 mg PO DAILY [facility] Last Admin: 09/15/16 10:24 Dose: 10 mg Finasteride (Proscar) 5 mg PO DAILY [facility] Last Admin: 09/15/16 11:32 Dose: Not Given Hydromorphone HCl (Dilaudid) 0.5 mg IVP Q5M PRN PRN Reason: Pain, moderate (4-7) Stop: 09/15/16 16:02 Ceftriaxone Sodium 1 gm/ (Sodium Chloride) 100 mls @ 100 mls/hr IVPB DAILY@ 0100 [facility] Last Admin: 09/15/16 01:02 Dose: 100 mls/hr Sodium Chloride (Sodium Chloride 0.9%) 1,000 mls @ 60 mls/hr IV .[id number] ONE Stop: 09/16/16 02:45 Last Admin: 09/15/16 10:25 Dose: 60 mls/hr Insulin Human Regular (Novolin R) 0 unit SC ACHS [facility] PRN Reason: Protocol Last Admin: 09/15/16 12:00 Dose: Not Given Morphine Sulfate (Morphine) 2 mg IVP Q4H PRN PRN Reason: Pain, moderate (4-7) Last Admin: 09/14/16 00:35 Dose: 2 mg Ondansetron HCl (Zofran Inj) 4 mg IVP ONCE PRN PRN Reason: Nausea/Vomiting Stop: 09/15/16 16:03 Pantoprazole Sodium (Protonix Ec Tab) 40 mg PO DAILY [facility] Last Admin: 09/15/16 11:32 Dose: Not Given Rosuvastatin Calcium (Crestor) 10 mg PO HS [facility] Last Admin: 09/14/16 21:38 Dose: 10 mg Sodium Chloride ([place] Baby Saline 30 Ml) 1 ml JEFF Q4 PRN PRN Reason: Dry nasal passages Last Admin: 09/15/16 06:32 Dose: 1 ml Tamsulosin HCl (Flomax) 0.4 mg PO DAILY [facility] Last Admin: 09/15/16 11:31 Dose: Not Given - Labs Labs: 09/15/16 07:07 09/15/16 07:07 PT 11.9 SECONDS (9.7-12.2) 09/11/16 07:25 INR 1.1 09/11/16 07:25 APTT 29 SECONDS (21-34) 09/11/16 07:25 Attending/Attestation - Attestation I have personally seen and examined this patient.: Yes I have fully participated in the care of the patient.: Yes I have reviewed all pertinent clinical information, including history, physical exam and plan: Yes Notes (Text): 09/15/16 15:39 Patient was seen and examined at bedside with the resident He complains of intermittent pain on urination We will continue current management Plan for OR tomorrow.
[2016-09-15] MEDS ORDERED: HYDROmorphone 1 mg/ml ISec IVP STA ×2 (01:47→10:16)
[2016-09-15] MEDS ORDERED: Sodium Chloride Nasal 0.65% Soln (30ml) NAS PRN (02:43)
[2016-09-15 07:21] LABS: BASO # 0.1 K/uL (0.0-0.2); EOS # 0.5 K/uL (0.0-0.7); EOS % 3.8 % (0.0-4.0); HEMATOCRIT 32.5 % (35.0-51.0); LYMPH # 2.9 K/uL (1.0-4.3); LYMPH % 22.6 % (20.0-40.0); MEAN CELL VOLUME 81.8 fL (80.0-94.0); MEAN CORPUSCULAR HEMOGLOBIN 27.5 pg (27.0-31.0); MEAN CORPUSCULAR HGB CONC 33.6 g/dL (33.0-37.0); MONO # 0.9 K/uL (0.0-0.8); MONO % 6.7 % (0.0-10.0); NRBC % 0.1 % (0.0-2.0); RED CELL DISTRIBUTION WIDTH 16.5 % (11.5-14.5)
[2016-09-15 07:56] LABS: CHLORIDE 99 mmol/L (98-107); POTASSIUM 3.8 mmol/L (3.6-5.2); SODIUM 137 mmol/L (132-148)
[2016-09-15 07:58] LABS: AST/SGOT 38 U/L (17-59); BILIRUBIN,TOTAL 0.6 mg/dL (0.2-1.3); CARBON DIOXIDE 26 mmol/L (22-30); GFR AFRICAN-AMERICAN > 60
[2016-09-15 07:59] LABS: ALB/GLOB RATIO 1.2 (1.0-2.1); ALKALINE PHOSPHATASE 79 U/L (38-126); ALT/SGPT 32 U/L (21-72); BLOOD UREA NITROGEN 11 mg/dL (9-20); CALCIUM 9.8 mg/dl (8.6-10.4); GLUCOSE,RANDOM 259 mg/dL (75-110); PHOSPHOROUS 3.3 mg/dL (2.5-4.5); TOTAL PROTEIN 7.6 g/dL (6.3-8.3)
[2016-09-15] MEDS: (Novolin R) Insulin Human Regular 100 units/ml vial SC SCH ×4 (08:30→23:11)
[2016-09-15] MEDS ORDERED: Sodium Chloride 0.9% 1,000 ML IV ONE (10:06)
--- NOTE | 2016-09-15 11:11 | CP.PCM.PN ---
<Zurdo Wiggins - Last Filed: 09/15/16 11:12> Subjective - Date & Time of Evaluation Date of Evaluation: 09/15/16 Time of Evaluation: 11:10 - Subjective Subjective: Med progress note. Attending: Mery Pt seen and examined at bedside. Pt in moderate pain, will give stat dilaudid. Was having some sob, but lungs clear. will order lasix after procedure. Procedure today with Hosay. Objective - Vital Signs/Intake and Output Vital Signs (last 24 hours): Temp Pulse Resp BP Pulse Ox 97.5 F L 78 21 148/65 97 09/15/16 08:35 09/15/16 08:35 09/15/16 08:35 09/15/16 08:35 09/15/16 08:35 Intake and Output: 09/15/16 09/15/16 06:59 18:59 Intake Total 1500 Output Total 1600 Balance -100 - Medications Medications: Current Medications Acetaminophen (Tylenol 325mg Tab) 650 mg PO Q6 PRN PRN Reason: Fever >100.4 F Last Admin: 09/14/16 00:35 Dose: 650 mg Amlodipine Besylate (Norvasc) 10 mg PO DAILY [facility] Last Admin: 09/14/16 09:31 Dose: 10 mg Finasteride (Proscar) 5 mg PO DAILY [facility] Last Admin: 09/14/16 09:33 Dose: 5 mg Ceftriaxone Sodium 1 gm/ (Sodium Chloride) 100 mls @ 100 mls/hr IVPB DAILY@ 0100 [facility] Last Admin: 09/15/16 01:02 Dose: 100 mls/hr Sodium Chloride (Sodium Chloride 0.9%) 1,000 mls @ 60 mls/hr IV .[id number] ONE Stop: 09/16/16 02:45 Insulin Human Regular (Novolin R) 0 unit SC ACHS [facility] PRN Reason: Protocol Last Admin: 09/15/16 08:30 Dose: Not Given Morphine Sulfate (Morphine) 2 mg IVP Q4H PRN PRN Reason: Pain, moderate (4-7) Last Admin: 09/14/16 00:35 Dose: 2 mg Pantoprazole Sodium (Protonix Ec Tab) 40 mg PO DAILY [facility] Last Admin: 09/14/16 09:31 Dose: 40 mg Rosuvastatin Calcium (Crestor) 10 mg PO HS [facility] Last Admin: 09/14/16 21:38 Dose: 10 mg Sodium Chloride (Thoreau Baby Saline 30 Ml) 1 ml JEFF Q4 PRN PRN Reason: Dry nasal passages Last Admin: 09/15/16 06:32 Dose: 1 ml Tamsulosin HCl (Flomax) 0.4 mg PO DAILY [facility] Last Admin: 09/14/16 09:31 Dose: 0.4 mg - Labs Labs: 09/15/16 07:07 09/15/16 07:07 PT 11.9 SECONDS (9.7-12.2) 09/11/16 07:25 INR 1.1 09/11/16 07:25 APTT 29 SECONDS (21-34) 09/11/16 07:25 - Constitutional Appears: Non-toxic, In Acute Distress - Head Exam Head Exam: ATRAUMATIC, NORMAL INSPECTION, NORMOCEPHALIC - Neck Exam Neck Exam: Full ROM, Normal Inspection. absent: Lymphadenopathy - Respiratory Exam Respiratory Exam: Clear to Ausculation Bilateral, NORMAL BREATHING PATTERN. absent: Respiratory Distress - Cardiovascular Exam Cardiovascular Exam: REGULAR RHYTHM, +S1, +S2 - GI/Abdominal Exam GI & Abdominal Exam: Soft, Normal Bowel Sounds. absent: Tenderness - Neurological Exam Neurological Exam: Alert, Awake, Oriented x3 - Psychiatric Exam Psychiatric exam: Normal Affect, Normal Mood - Skin Skin Exam: Dry, Intact, Normal Color, Warm Assessment and Plan - Assessment and Plan (Free Text) Assessment: This is an 81 yo male with past medical hx of DM, BPH, CAD presenting with chief complaint of urinary retention and hematuria 1. Urinary retention UA 2+ protein, 1+ glucose, 2+blood, , 81 WBC, 8201 RBC Urology consult, Dr. Quintanilla, recs appreciated urine culture negative f/u Blood cx Rocephin 1Gm IVPB daily, day 5 Abd/Pelv CT: f/u report s/p cystoscopy shows enlarged prostate will undergo greenlight laser procedure today will flush catheter if further clots pass overnight will give stat dose of dilaudid 2. Hematuria UA 2+ protein, 1+ glucose, 2+blood, , 81 WBC, 8201 RBC Urology consult, Dr. Quintanilla, help appreciated urine culture negative f/u Blood cx Rocephin 1Gm IVPB daily, day 5 Abd/Pelv CT: f/u report pt now has catheter inserted s/p cystoscopy, greenlight laser procedure today 3. Leukocytosis -continue to monitor 4. Hx of DM type 2 -continue pt on ISS -continue accuchecks -hold home metformin -continue crestor daily -hold coverage bc pt is npo for procedure 5. Hx of Hypertension -continue amlodipine 10 daily 6. Hx of BPH Tamsulosin 0.4mg Finasteride 5 mg daily 7. Hx of CAD -continue to monitor 8. GI/DVT ppx SCDs Protonix 40 mg PO daily NS 60 cc/hr discussed with Dr. Ordonez <Sudeep Ordonez - Last Filed: 09/25/16 13:35> Objective - Vital Signs/Intake and Output Vital Signs (last 24 hours): Temp Pulse Resp BP Pulse Ox 98.1 F 90 20 150/72 96 09/16/16 08:11 09/16/16 08:11 09/16/16 08:11 09/16/16 08:11 09/16/16 08:11 - Labs Labs: 09/16/16 08:07 09/16/16 08:07 PT 11.9 SECONDS (9.7-12.2) 09/11/16 07:25 INR 1.1 09/11/16 07:25 APTT 29 SECONDS (21-34) 09/11/16 07:25 Attending/Attestation - Attestation I have personally seen and examined this patient.: Yes I have fully participated in the care of the patient.: Yes I have reviewed all pertinent clinical information, including history, physical exam and plan: Yes Notes (Text): 09/25/16 13:34 Patient was seen and examined at bedside with the resident This is a late computer entry I discussed the plan of care with the resident I agree with above history and physical and assessment/plan with the resident
[2016-09-15] MEDS: Pantoprazole 40 mg EC Tab PO SCH (11:32)
[2016-09-15] MEDS ORDERED: Etomidate 20 mg/10ml Inj IV ONE (12:54)
[2016-09-15] MEDS ORDERED: Rocuronium 10 mg/ml (10 ml) ONE (12:56)
[2016-09-15] MEDS ORDERED: Gentamicin 80 mg in 0.9% NS 160 MG/200 ML BAG IVPB ONE (12:57)
[2016-09-15] MEDS ORDERED: Ciprofloxacin 400mg/200ml D5W 0 MG/0 ML BAG IVPB ONE (12:58)
[2016-09-15] MEDS ORDERED: Lactated Ringer's 1,000 ML IV ONE (13:05)
[2016-09-15] MEDS ORDERED: HYDROmorphone 0.5 mg/0.5 ml ISec IVP PRN (14:02)
--- NOTE | 2016-09-15 14:15 | PCM.SURG1 ---
Surgeon's Initial Post Op Note - Surgeon's Notes Surgeon: Socorro Drivability Technician: THEODORA Type of Anesthesia: General LMA Anesthesia Administered By: staff Pre-Operative Diagnosis: BPH/URINARY RETENTION/Hematuria Operative Findings: ENLARGED OBSTRUCTING FRIABLE PROSTATE Post-Operative Diagnosis: SAME Operation Performed: CYSTOSCOPY EVAC CLOTS/tulap Specimen/Specimens Removed: CLOTTED BLOOD Estimated Blood Loss: EBL {In ML}: 0 Blood Products Given: N/A Drains Used: No Drains Post-Op Condition: Good Date of Surgery/Procedure: 09/15/16 Time of Surgery/Procedure: 14:16
--- NOTE | 2016-09-15 14:43 | OP ---
PROCEDURE DATE: 09/15/2016 PREOPERATIVE DIAGNOSES: Hematuria, benign prostatic hypertrophy and urinary retention. POSTOPERATIVE DIAGNOSES: Hematuria, benign prostatic hypertrophy and urinary retention. PROCEDURES: Cystoscopy, evacuation of clots and transurethral laser ablation of prostate. DESCRIPTION OF PROCEDURE: The patient signed a detailed informed consent. He was made aware of all risks and complications as well as the increased complication rate because of his history of previous TUR 12 years ago. He is aware that he may suffer from incontinence and continued bleeding and other complications. We brought him into the room. He was draped and prepped in the usual manner. A saul eout was taken according to the rules and regulations of [facility]. The patient was then cysto scoped with a #21 Storz panendoscope. The pendulous and membranous urethra was normal. The bladder was entered atraumatically. There were clots within the bladder. They were evacuated free. The sco pe was brought back into the prostate fossa. There was evidence of previous resection but significan t residual apical tissue. The laser resectoscope was then inserted and the laser fiber inserted with in the resectoscope and the prostate tissue was ablated with the laser fiber. This also caused excel lent hemostasis. Hematuria ceased. A good voiding channel was obtained. No injury occurred to the verumontanum, external sphincter or ureteral orifices. No bladder injury occurred. The meticulous h emostasis was achieved with the laser coagulation. The bladder was then filled. The scope was pulle d out, after placing a guidewire through the scope and a #20 2-way 5 mL Councill tip catheter was mary kay kristina over the guidewire and passed into the bladder without difficulty. It drained clear irrigant flu id. It is inflated with normal saline and the patient was sent to the recovery room in good conditio n. Brett Quintanilla MD cc: [phone] TT: 09/15/2016 14:42:14 rama
[2016-09-15 15:47] VITALS: O2SAT 96
[2016-09-15] MEDS ORDERED: HYDROmorphone 0.5 mg/0.5 ml ISec IVP STA (20:01)
[2016-09-15 23:33] VITALS: RESP 20
[2016-09-16] MEDS: (Novolin R) Insulin Human Regular 100 units/ml vial SC SCH ×2 (07:45→12:20)
[2016-09-16 08:12] VITALS: BP 150/72; PULSE 90; TEMP 98.1
[2016-09-16 08:15] LABS: BASO # 0.2 K/uL (0.0-0.2); BASO % 1.3 % (0.0-2.0); EOS # 0.5 K/uL (0.0-0.7); EOS % 3.6 % (0.0-4.0); LYMPH # 1.8 K/uL (1.0-4.3); LYMPH % 13.6 % (20.0-40.0); MEAN CELL VOLUME 82.2 fL (80.0-94.0); MEAN CORPUSCULAR HEMOGLOBIN 26.4 pg (27.0-31.0); MEAN CORPUSCULAR HGB CONC 32.1 g/dL (33.0-37.0); MEAN PLATELET VOLUME 9.4 fL (7.2-11.7); MONO # 0.9 K/uL (0.0-0.8); MONO % 6.6 % (0.0-10.0); RED CELL DISTRIBUTION WIDTH 16.7 % (11.5-14.5); WHITE BLOOD COUNT 13.6 K/uL (4.8-10.8)
[2016-09-16 08:22] LABS: CHLORIDE 98 mmol/L (98-107); POTASSIUM 3.5 mmol/L (3.6-5.2); SODIUM 135 mmol/L (132-148)
[2016-09-16 08:24] LABS: ALB/GLOB RATIO 1.2 (1.0-2.1); ALKALINE PHOSPHATASE 81 U/L (38-126); AST/SGOT 26 U/L (17-59); BILIRUBIN,TOTAL 0.7 mg/dL (0.2-1.3); BLOOD UREA NITROGEN 11 mg/dL (9-20); CARBON DIOXIDE 26 mmol/L (22-30); GFR AFRICAN-AMERICAN > 60; TOTAL PROTEIN 7.1 g/dL (6.3-8.3)
[2016-09-16 08:25] LABS: ALT/SGPT 35 U/L (21-72); CALCIUM 9.8 mg/dl (8.6-10.4); GLUCOSE,RANDOM 273 mg/dL (75-110); MAGNESIUM 1.7 mg/dL (1.6-2.3); PHOSPHOROUS 3.2 mg/dL (2.5-4.5)
[2016-09-16] MEDS: Pantoprazole 40 mg EC Tab PO SCH (09:22)
--- NOTE | 2016-09-16 15:48 | CP.PCM.DIS ---
<Zurdo Wiggins - Last Filed: 09/16/16 15:55> Provider - Provider Date of Admission: 09/10/16 23:07 Attending physician: Hany Aggarwal MD Consults: 1. Urology- Dr. Quintanilla Time Spent in preparation of Discharge (in minutes): 45 Hospital Course - Lab Results Lab Results: Micro Results 09/11/16 02:21 Urine Urine Culture - Final No Growth (<1,000 CFU/ML) Most Recent Lab Values WBC 13.6 K/uL (4.8-10.8) H 09/16/16 08:07 RBC 4.02 Mil/uL (4.40-5.90) L 09/16/16 08:07 Hgb 10.6 g/dL (12.0-18.0) L 09/16/16 08:07 Hct 33.0 % (35.0-51.0) L 09/16/16 08:07 MCV 82.2 fL (80.0-94.0) 09/16/16 08:07 MCH 26.4 pg (27.0-31.0) L 09/16/16 08:07 MCHC 32.1 g/dL (33.0-37.0) L 09/16/16 08:07 RDW 16.7 % (11.5-14.5) H 09/16/16 08:07 Plt Count 448 K/uL (130-400) H 09/16/16 08:07 MPV 9.4 fL (7.2-11.7) 09/16/16 08:07 Neut % (Auto) 74.9 % (50.0-75.0) 09/16/16 08:07 Lymph % (Auto) 13.6 % (20.0-40.0) L 09/16/16 08:07 [place] % (Auto) 6.6 % (0.0-10.0) 09/16/16 08:07 Eos % (Auto) 3.6 % (0.0-4.0) 09/16/16 08:07 Baso % (Auto) 1.3 % (0.0-2.0) 09/16/16 08:07 Neut # 10.2 K/uL (1.8-7.0) H 09/16/16 08:07 Lymph # 1.8 K/uL (1.0-4.3) 09/16/16 08:07 [place] # 0.9 K/uL (0.0-0.8) H 09/16/16 08:07 Eos # 0.5 K/uL (0.0-0.7) 09/16/16 08:07 Baso # 0.2 K/uL (0.0-0.2) 09/16/16 08:07 Differential Comment Y 09/10/16 21:34 PT 11.9 SECONDS (9.7-12.2) 09/11/16 07:25 INR 1.1 09/11/16 07:25 APTT 29 SECONDS (21-34) 09/11/16 07:25 Sodium 135 mmol/L (132-148) 09/16/16 08:07 Potassium 3.5 mmol/L (3.6-5.2) L 09/16/16 08:07 Chloride 98 mmol/L (98-107) 09/16/16 08:07 Carbon Dioxide 26 mmol/L (22-30) 09/16/16 08:07 Anion Gap 15 (10-20) 09/16/16 08:07 BUN 11 mg/dL (9-20) 09/16/16 08:07 Creatinine 0.8 MG/DL (0.8-1.5) 09/16/16 08:07 Est GFR ( Amer) > 60 09/16/16 08:07 Est GFR (Non-Af Amer) > 60 09/16/16 08:07 POC Glucose (mg/dL) 340 mg/dL (65-110) H 09/16/16 11:15 Random Glucose 273 mg/dL (75-110) H 09/16/16 08:07 Calcium 9.8 mg/dl (8.6-10.4) 09/16/16 08:07 Phosphorus 3.2 mg/dL (2.5-4.5) 09/16/16 08:07 Magnesium 1.7 mg/dL (1.6-2.3) 09/16/16 08:07 Total Bilirubin 0.7 mg/dL (0.2-1.3) 09/16/16 08:07 AST 26 U/L (17-59) 09/16/16 08:07 ALT 35 U/L (21-72) 09/16/16 08:07 Alkaline Phosphatase 81 U/L (38-126) 09/16/16 08:07 Total Protein 7.1 g/dL (6.3-8.3) 09/16/16 08:07 Albumin 3.9 g/dL (3.5-5.0) 09/16/16 08:07 Globulin 3.2 gm/dL (2.2-3.9) 09/16/16 08:07 Albumin/Globulin Ratio 1.2 (1.0-2.1) 09/16/16 08:07 Urine Color Red (YELLOW) 09/10/16 21:34 Urine Clarity Hazy (Clear) 09/10/16 21:34 Urine pH 6.0 (5.0-8.0) 09/10/16 21:34 Ur Specific [place] 1.010 (1.003-1.030) 09/10/16 21:34 Urine Protein 2+ mg/dL (NEGATIVE) H 09/10/16 21:34 Urine Glucose (UA) 1+ mg/dL (Normal) H 09/10/16 21:34 Urine Ketones Negative mg/dL (NEGATIVE) 09/10/16 21:34 Urine Blood 2+ (NEGATIVE) H 09/10/16 21:34 Urine Nitrate Negative (NEGATIVE) 09/10/16 21:34 Urine Bilirubin Negative (NEGATIVE) 09/10/16 21:34 Urine Urobilinogen Normal mg/dL (0.2-1.0) 09/10/16 21:34 Ur Leukocyte Esterase Neg Shellie/uL (Negative) 09/10/16 21:34 Urine WBC (Auto) 81 /hpf (0-5) H 09/10/16 21:34 Urine RBC (Auto) 8201 /hpf (0-3) H 09/10/16 21:34 - Hospital Course Hospital Course: Attending: Dr. Ordonez admit date- 09/10/16 Discharge date- 09/16/16 Procedures s/p cysto s/p greenlight laser procedure Complications none Discharge dx 1. Urinary retention 2. BPH 3. Hematuria 4. HLD 5. DM Consults: 1. Urology- Dr. Quintanilla HPI: see h/p Lab data: see lab section Hospital course. 81 yo male with past medical hx of BPH, Diabetes II, HTN, CAD presents to [facility] ED with complaint of urinary retention and hematuria for 3 days. Patient left AMA on 09/05 and was given Augmentin to take. He started to take it but stated the Augmentin and Trulicity he was also taking made urinary retention worse, which facilitated the bleeding. Patient reports completing 2 days of Augmentin but stopped due to his symptoms. Patient stated his symptoms never resolved from previous admission. He rated the pain as 10/10 in severity. He described the pain as constant and throbbing, located in suprapubic region and his penis without radiation. Urinating and certain movements exacerbated the pain while nothing seemed to alleviate it. Admitted to fever, dysuria, decreased urinary volume, and urinary frequency. Denied chills, headache, weakness, chest pain, palpitations, SOB, abdominal pain, back pain, rash, or any additional acute complaints. Pt had coude catheter placed and pt had cystoscopy. He continued to have a lot of abdominal pain and some clots passing overnight. Dilaudid relieved his pain. His prostate was found to be very enlarged during cysto and he underwent a greenlight laser procedure and on day of discharge he was feeling much better. He was treated for his diabetes and HLD during hospital stay. He received 6 days of rocephin and will be discharged on cipro for another week. We also gave him proscar and flomax daily. Pt is leaving with phipps and will have it removed by Dr. Quintanilla. Discharge meds: 1. Norvasc 10 mg daily 2. Atorvastatin 20 mg daily 3. Cipro 500 BID 4. Flomax .4 daily 5. Proscar 5 mg daily 6. Glyburide 2.5 BID 7. Levemir 40 nightly 8. Metformin 1000 BID Discharge instructions: Pt medically stable for discharge. Pt to f/u with Dr. Quintanilla. Resume all home meds. Pt will need to leave with phipps. Return if condition worsens. - Date & Time of H&P Date of H&P: 09/10/16 Time of H&P: 22:56 Discharge Exam - Head Exam Head Exam: ATRAUMATIC, NORMAL INSPECTION, NORMOCEPHALIC - Eye Exam Eye Exam: EOMI - ENT Exam ENT Exam: Mucous Membranes Moist - Neck Exam Neck exam: Full Rom, Normal Inspection - Respiratory Exam Respiratory Exam: NORMAL BREATHING PATTERN, UNREMARKABLE - Cardiovascular Exam Cardiovascular Exam: REGULAR RHYTHM, +S1, +S2 - GI/Abdominal Exam GI & Abdominal Exam: Normal Bowel Sounds - Extremities Exam Extremities exam: full ROM, normal inspection - Neurological Exam Neurological exam: Alert, Oriented x3 - Psychiatric Exam Psychiatric exam: Normal Affect, Normal Mood - Skin Skin Exam: Dry, Intact, Normal Color, Warm Discharge Plan - Discharge Medications Prescriptions: Ciprofloxacin [Cipro] 500 mg PO BID #14 tab - Follow Up Plan Condition: STABLE Disposition: HOME/ ROUTINE Instructions: Ciprofloxacin (By mouth), Urinary Retention in Men (GEN), Phipps Catheter Placement and Care (GEN), Basic Carbohydrate Counting (DC), Meal Planning with Diabetes Exchanges (DC), Acute Hematuria (DC), Urinary Leg Bag ( GEN) Additional Instructions: Patient to be discharged with Phipps's catheter and leg bag Follow up with Dr Quintanilla within 1 week Take Ciprofloxacin as prescribed Continue home medication Referrals: Brett Quintanilla Jr., MD [Staff Provider] - <Sudeep Ordonez - Last Filed: 09/25/16 13:10> Provider - Provider Date of Admission: 09/10/16 23:07 Attending physician: Hany Aggarwal MD Hospital Course - Lab Results Lab Results: Micro Results 09/11/16 02:21 Urine Urine Culture - Final No Growth (<1,000 CFU/ML) Most Recent Lab Values WBC 13.6 K/uL (4.8-10.8) H 09/16/16 08:07 RBC 4.02 Mil/uL (4.40-5.90) L 09/16/16 08:07 Hgb 10.6 g/dL (12.0-18.0) L 09/16/16 08:07 Hct 33.0 % (35.0-51.0) L 09/16/16 08:07 MCV 82.2 fL (80.0-94.0) 09/16/16 08:07 MCH 26.4 pg (27.0-31.0) L 09/16/16 08:07 MCHC 32.1 g/dL (33.0-37.0) L 09/16/16 08:07 RDW 16.7 % (11.5-14.5) H 09/16/16 08:07 Plt Count 448 K/uL (130-400) H 09/16/16 08:07 MPV 9.4 fL (7.2-11.7) 09/16/16 08:07 Neut % (Auto) 74.9 % (50.0-75.0) 09/16/16 08:07 Lymph % (Auto) 13.6 % (20.0-40.0) L 09/16/16 08:07 [place] % (Auto) 6.6 % (0.0-10.0) 09/16/16 08:07 Eos % (Auto) 3.6 % (0.0-4.0) 09/16/16 08:07 Baso % (Auto) 1.3 % (0.0-2.0) 09/16/16 08:07 Neut # 10.2 K/uL (1.8-7.0) H 09/16/16 08:07 Lymph # 1.8 K/uL (1.0-4.3) 09/16/16 08:07 [place] # 0.9 K/uL (0.0-0.8) H 09/16/16 08:07 Eos # 0.5 K/uL (0.0-0.7) 09/16/16 08:07 Baso # 0.2 K/uL (0.0-0.2) 09/16/16 08:07 Differential Comment Y 09/10/16 21:34 PT 11.9 SECONDS (9.7-12.2) 09/11/16 07:25 INR 1.1 09/11/16 07:25 APTT 29 SECONDS (21-34) 09/11/16 07:25 Sodium 135 mmol/L (132-148) 09/16/16 08:07 Potassium 3.5 mmol/L (3.6-5.2) L 09/16/16 08:07 Chloride 98 mmol/L (98-107) 09/16/16 08:07 Carbon Dioxide 26 mmol/L (22-30) 09/16/16 08:07 Anion Gap 15 (10-20) 09/16/16 08:07 BUN 11 mg/dL (9-20) 09/16/16 08:07 Creatinine 0.8 MG/DL (0.8-1.5) 09/16/16 08:07 Est GFR ( Amer) > 60 09/16/16 08:07 Est GFR (Non-Af Amer) > 60 09/16/16 08:07 POC Glucose (mg/dL) 340 mg/dL (65-110) H 09/16/16 11:15 Random Glucose 273 mg/dL (75-110) H 09/16/16 08:07 Calcium 9.8 mg/dl (8.6-10.4) 09/16/16 08:07 Phosphorus 3.2 mg/dL (2.5-4.5) 09/16/16 08:07 Magnesium 1.7 mg/dL (1.6-2.3) 09/16/16 08:07 Total Bilirubin 0.7 mg/dL (0.2-1.3) 09/16/16 08:07 AST 26 U/L (17-59) 09/16/16 08:07 ALT 35 U/L (21-72) 09/16/16 08:07 Alkaline Phosphatase 81 U/L (38-126) 09/16/16 08:07 Total Protein 7.1 g/dL (6.3-8.3) 09/16/16 08:07 Albumin 3.9 g/dL (3.5-5.0) 09/16/16 08:07 Globulin 3.2 gm/dL (2.2-3.9) 09/16/16 08:07 Albumin/Globulin Ratio 1.2 (1.0-2.1) 09/16/16 08:07 Urine Color Red (YELLOW) 09/10/16 21:34 Urine Clarity Hazy (Clear) 09/10/16 21:34 Urine pH 6.0 (5.0-8.0) 09/10/16 21:34 Ur Specific [place] 1.010 (1.003-1.030) 09/10/16 21:34 Urine Protein 2+ mg/dL (NEGATIVE) H 09/10/16 21:34 Urine Glucose (UA) 1+ mg/dL (Normal) H 09/10/16 21:34 Urine Ketones Negative mg/dL (NEGATIVE) 09/10/16 21:34 Urine Blood 2+ (NEGATIVE) H 09/10/16 21:34 Urine Nitrate Negative (NEGATIVE) 09/10/16 21:34 Urine Bilirubin Negative (NEGATIVE) 09/10/16 21:34 Urine Urobilinogen Normal mg/dL (0.2-1.0) 09/10/16 21:34 Ur Leukocyte Esterase Neg Shellie/uL (Negative) 09/10/16 21:34 Urine WBC (Auto) 81 /hpf (0-5) H 09/10/16 21:34 Urine RBC (Auto) 8201 /hpf (0-3) H 09/10/16 21:34 Attending/Attestation - Attestation I have personally seen and examined this patient.: Yes I have fully participated in the care of the patient.: Yes I have reviewed all pertinent clinical information, including history, physical exam and plan: Yes Notes (Text): 09/25/16 13:09 Patient was seen and examined at bedside with the resident I discussed the discharge plan with the patient and he verbalized understanding I agree with the above discharge note by the resident.
== END 2016-09-16 15:45 | disposition home or self-care (01) | DRG 713 ==
LOC: C.ER 19:25 → C.9E 23:07 → C.3T 23:13
PROVIDERS: ADMIT Internal Medicine; ATTEND Internal Medicine
PROC: 0TJB8ZZ Inspection of Bladder, Via Natural or Artificial Opening Endoscopic (ICD-10-PCS; 2016-09-12)
PROC: 0TJB8ZZ Inspection of Bladder, Via Natural or Artificial Opening Endoscopic (ICD-10-PCS; 2016-09-15)
PROC: 0TCB8ZZ Extirpation of Matter from Bladder, Via Natural or Artificial Opening Endoscopic (ICD-10-PCS; 2016-09-15)
PROC: 0VT08ZZ Resection of Prostate, Via Natural or Artificial Opening Endoscopic (ICD-10-PCS; principal; 2016-09-15 13:00)
DX: N40.1 Benign prostatic hyperplasia with lower urinary tract symptoms (principal); N39.0 Urinary tract infection, site not specified; E11.9 Type 2 diabetes mellitus without complications; N13.8 Other obstructive and reflux uropathy; R33.8 Other retention of urine; I10 Essential (primary) hypertension; R31.0 Gross hematuria; E78.5 Hyperlipidemia, unspecified; Z95.5 Presence of coronary angioplasty implant and graft